=== PATIENT | female | born 1930 | race Caucasian/White ===

== ENCOUNTER 2016-05-11 14:11 | Outpatient (RCR) | payer MEDICARE ==
[~2016-05-11 14:11] MED LIST: AC325T PO; ALBU17AE3 IH; AMLO5TAB2 PO; ASP325TEC PO; ASP81CT PO; ASP81TEC PO; CALC-793 PO; CETI10TA17 PO; CLOP75TA PO; CLOP75TA28 PO; CLPD75T PO; CYAN1TAB26 PO; FAMO20TA13 PO; FERR325C PO; FISH OIL 1,2001 EAC1 PO; FLUT16SP22 NS; IPRA3AMP11 NEB; IPRA4AER INH; LEVO50TA6 PO; LEVO750T39 PO; LISI2.5T56 PO; LNZ600T PO; MECL-106 PO; METO25TA2 PO; METO50TA2 PO; METR500T PO; NIAC1CAP PO; PANT40TA PO; PRD10T PO; PRED10DR OP; PREDISONE; RT-COMBINH IH; SIMV40TA4 PO; TIOT18CA IH; [UNRECOGNIZED DRUG - CODE] OP
--- OUTSIDE RECORDS SUMMARY | 2016-05-11 14:15 | XMS REPORT | Continuity of Care Document ---
Author Author [facility] Organization [facility] Address Unknown Phone Unavailable Care Team Providers Care Road Commissioner Name Role Phone LORNA WICK MD PCP Insurance Providers Payer Name Policy Number Subscriber Name Relationship [employer] [id number] Saira Gilmore 19 Self / Same As Patient Advance Directives Directive Response Recorded Date/Time Advance Directives No 01/10/16 11:45am Health Care Power of Dish Carrier No 01/10/16 11:45am Organ Donor No 01/10/16 11:45am Resuscitation Status Full Code 01/10/16 11:45am Chief Complaint and Reason for Visit Chief Complaint PERSISTANT VOMITING Reason for Visit Volume depletion Problems Active Problems Medical Problem Onset Date Status Bronchitis Unknown Acute Chest pain Unknown Acute Generalized weakness Unknown Acute Intractable nausea and vomiting Unknown Acute Persistent vomiting Unknown Acute Volume depletion Unknown Acute Medications Current Home Medications Medication Dose Units Route Directions Days/Qty Instructions Start Date [place]-3 Fatty Acids/Fish Oil 1 Each 1,200 Mg Oral Twice A Day Acetaminophen 325 Mg 650 Mg Oral Every 4HRS as needed for Pain TAKES 2 (325MG) TABLETS 03/10/11 Albuterol/Ipratropium 3 Ml 3 Ml Nebullizer Three Times A Day as needed for Shortness Of Breath 08/08/11 Niacin/Inositol Niacinate 1 Each 1,000 Mg Oral Bedtime 11/07/11 Aspirin 81 Mg 81 Mg Oral Bedtime 11/07/11 Levothyroxine Sodium 50 Mcg 50 Mcg Oral Daily 10/13/15 Clopidogrel Bisulfate 75 Mg 75 Mg Oral Daily 10/13/15 Simvastatin 40 Mg 40 Mg Oral Bedtime 10/13/15 Metoprolol Tartrate 50 Mg 25 Mg Oral Twice A Day TAKES 1/2 (50MG) TABLET 10/13/15 Meclizine Hcl 25 Mg 25 Mg Oral Three Times A Day as needed for Vertigo 10/13/15 Albuterol/Ipratropium 4 Gm 1 Puff Inhalation Four Times Daily as needed for Shortness Of Breath 10/13/15 Levofloxacin 750 Mg 750 Mg Oral Q48h@11 4 Start on Jan 19 01/18/16 Prednisone 10 Mg 60 Mg Oral Daily 21 Take 6 tabs (60mg) daily, decrease by 1 tab (10mg) daily. 01/18/16 Past Home Medications Medication Directions Ordered Status Metoprolol Tartrate (Lopressor) 25 Mg Tablet, 25 Mg Oral Twice A Day Discontinued Lisinopril (Zestril) 2.5 Mg Tablet, 2.5 Mg Oral Daily 10/20/09 Discontinued Simvastatin 40 Mg Tablet, 40 Mg Oral Daily 10/20/09 Discontinued Aspirin 81 Mg Chew, 81 Mg Oral Twice A Day 10/20/09 Discontinued Calcium/Vitamin D 1 Tab Tablet, 1 Tab Oral Daily 10/20/09 Discontinued Linezolid 600 Mg Tab, 600 Mg Oral Twice A Day 11/26/09 Discontinued Albuterol 17 Gm Inh, 1 [place] Inhalation Twice A Day 08/11/10 Discontinued Ferrous Sulfate 325 ( 65 )Mg Capsule.sa, 325 Mg Oral Twice A Day 03/08/11 Discontinued [Predisone] , 03/08/11 Discontinued Cyanocobalamin/Folic Acid 1 Each Tablet, 1 Each Oral Daily 03/08/11 Discontinued Bromfenac Sodium 1.7 Ml Drops, 1 Drop Ophthalmic Daily 08/03/11 Discontinued Prednisolone Acetate 10 Ml Drops.susp, 3 Drops Ophthalmic As Directed Discontinued Tiotropium [place] 1 Inh Aerp, 0 Inhalation Daily 08/08/11 Discontinued Ipratropium/Albuterol Sulfate 14.7 Gm Aer.w.adap, 1 Puff Inhalation Every 2 Hours as needed 08/08/11 Discontinued Clopidogrel Bisulfate 75 Mg Tablet, 75 Mg Oral Daily 11/07/11 Discontinued Aspirin 325 Mg Tabec, 162.5 Mg Oral Twice A Day 11/07/11 Discontinued Clopidogrel Bisulfate 75 Mg Tablet, 75 Mg Oral Daily 03/12/12 Discontinued Pantoprazole Sodium 40 Mg Tablet.dr, 40 Mg Oral Daily 05/29/12 Discontinued Amlodipine Besylate (Norvasc 5 Mg) 5 Mg Tablet, 5 Mg Oral Daily 06/05/12 Discontinued Prednisone 10 Mg Tab, 1 Tab Oral Three Times A Day 06/05/12 Discontinued Famotidine 20 Mg Tablet, 20 Mg Oral Twice A Day 12/24/13 Discontinued Metronidazole 500 Mg Tab, 1 Each Oral Three Times A Day 12/24/13 Discontinued Cetirizine Hcl 10 Mg Tablet, 10 Mg Oral Bedtime 10/13/15 Discontinued Fluticasone Propionate 16 Gm [place].susp, 1 [place] Nasal Daily 01/10/16 Discontinued Social History Social History Problem Response Recorded Date/Time Alcohol Use Denies Use 10/13/2015 3:07pm Recreational Drug Use No 10/13/2015 3:07pm Recent Foreign Travel No 12/20/2013 10:23pm Recent Infectious Disease Exposure No 12/20/2013 10:23pm Hospitalization with Isolation Unknown 12/24/2013 3:17pm Sexually Transmitted Disease No 01/10/2016 11:45am HIV/AIDS No 01/10/2016 11:45am Smoking Status Former Smoker 01/10/2016 4:23pm Do you dip or chew tobacco? No 10/13/2015 11:55am Recent Hopitalizations No 01/10/2016 11:45am Sexually Transmitted Disease No 01/10/2016 11:45am Hospitalization with Isolation Unknown 12/24/2013 3:17pm Query Response Start Date Stop Date Smoking Status Former Smoker 12/20/1993 Hospital Discharge Instructions Patient Instructions Physician Instructions Resume Normal Activity: Yes Discharge Diet: Eat Small Frequent Meals Drink 6-8 Glasses of Fluid/Day: Yes Driving Instructions: No Driving for 1 Week Avoid ALL Tobacco Products: Smoking of Any Kind Plan of Care Discharge Date 01/18/16 1:41pm Disposition 06 HOME HEALTH SERVICE Instructions/Education Provided Acute Abdominal Pain (ED) Forms Provided Follow-Up Fax Prescriptions See Medication Section Referrals TEQUILA GARCIA DO (Unspecified) - 02/01/16 Address: [address] [place] [address]&[place], [place] [id number] Reason(s) for Referral: FOLLOW UP APPOINTMENT WITH DR. GARCIA IS AT 9:45AM. (Unspecified) - Reason(s) for Referral: NURSING SERVICES Care Plan and Goals See Discharge Instructions Section Functional Status Query Response Date Recorded Patient Orientation Person Place Time Situation Eyes Open January 18, 2016 2:46pm Comprehension Ability Understands Concepts January 17, 2016 8:20pm Allergies, Adverse Reactions, Alerts Allergen Type Severity Reaction Status Last Updated Tetanus Vaccines & Toxoid ([id number]) Allergy Unknown Active 08/03/11 Erythromycin base Allergy Unknown Active 08/03/11 flona Adverse Reaction Intermediate Active 01/15/16 Immunizations No immunization records. Vital Signs Acute Vital Signs Vital Response Date/Time Temperature (Fahrenheit) 97.4 degrees F (97.6 - 99.5) 01/18/2016 6:00am Temperature (Calculated Celsius) 36.23276 degrees C (36.4 - 37.5) 01/18/2016 6:00am Temperature Source Tympanic 01/18/2016 6:00am Pulse Rate (adult) 84 bpm (60 - 90) 01/18/2016 6:00am Respiratory Rate 20 bpm (12 - 24) 01/18/2016 6:00am O2 Sat by Pulse Oximetry 95 % (88 - 100) 01/18/2016 10:08am Blood Pressure 167/61 mm Hg 01/18/2016 6:00am Blood Pressure Mean 96 mm Hg 01/18/2016 6:00am Pain Numeric Pain Scale 0-No Pain 01/18/2016 1:41pm Height (Feet) 5 feet 01/10/2016 11:45am Height (Inches) 0.00 inches 01/10/2016 11:45am Height (Calculated Centimeters) 152.787263 cm 01/10/2016 11:45am Weight (Pounds) 115 pounds 01/10/2016 11:45am Weight (Ounces) 4.0 oz 01/10/2016 11:45am Weight (Calculated Grams) 04689.52 gm 01/10/2016 11:45am Weight (Calculated Kilograms) 52.669214 kilograms 01/10/2016 11:45am Calculated BMI 22.5 01/10/2016 11:45am Capillary Refill Capillary Refill Less Than 3 Seconds 01/12/2016 9:00pm Results Laboratory Results Test Name Result Units Flags Reference Collection Date/Time Result Date/ Time Comments White Blood Count 7.3 10^3/uL 4.3-11.0 01/16/2016 6:01/16/2016 6: 28am Red Blood Count 3.88 10^6/uL L 4.35-5.85 01/16/2016 6:01/16/2016 6: 28am Hemoglobin 10.3 G/DL L 11.5-16.0 01/16/2016 6:01/16/2016 6:28am Hematocrit 31 % L 35-52 01/16/2016 6:01/16/2016 6:28am Mean Corpuscular Volume 81 FL 80-99 01/16/2016 6:01/16/2016 6: 28am Mean Corpuscular Hemoglobin 27 PG 25-34 01/16/2016 6:01/16/2016 6: 28am Mean Corpuscular Hemoglobin Concent 33 G/DL 32-36 01/16/2016 6: 6:28am Red Cell Distribution Width 14.9 % H 10.0-14.5 01/16/2016 6:2015 6:28am Platelet Count 361 10^3/uL 130-400 01/16/2016 6:01/16/2016 6:28am Mean Platelet Volume 8.9 FL 7.4-10.4 01/16/2016 6:01/16/2016 6: 28am Neutrophils (%) (Auto) 81 % H 42-75 01/16/2016 6:01/16/2016 6:28am Lymphocytes (%) (Auto) 8 % L 12-44 01/16/2016 6:01/16/2016 6:28am Monocytes (%) (Auto) 11 % 0-12 01/16/2016 6:01/16/2016 6:28am Eosinophils (%) (Auto) 0 % 0-10 01/16/2016 6:01/16/2016 6:28am Basophils (%) (Auto) 0 % 0-10 01/16/2016 6:01/16/2016 6:28am Neutrophils # (Auto) 5.9 X 10^3 1.8-7.8 01/16/2016 6:16am 01/16/2016 6: 28am Lymphocytes # (Auto) 0.6 X 10^3 L 1.0-4.0 01/16/2016 6:16am 01/16/2016 6: 28am Monocytes # (Auto) 0.8 X 10^3 0.0-1.0 01/16/2016 6:16am 01/16/2016 6: 28am Eosinophils # (Auto) 0.0 10^3/uL 0.0-0.3 01/16/2016 6:16am 01/16/2016 6 :28am Basophils # (Auto) 0.0 10^3/uL 0.0-0.1 01/16/2016 6:16am 01/16/2016 6: 28am Neutrophils % (Manual) 92 % 01/12/2016 9:59am 01/12/2016 11:09am Lymphocytes % (Manual) 7 % 01/12/2016 9:59am 01/12/2016 11:09am Monocytes % (Manual) 1 % 01/12/2016 9:59am 01/12/2016 11:09am Crenated Cell MODERATE 01/12/2016 9:59am 01/12/2016 11:09am Urine Color STRAW 01/12/2016 10:51am 01/12/2016 11:35am Urine Clarity CLEAR 01/12/2016 10:51am 01/12/2016 11:35am Urine pH 6.5 5-9 01/12/2016 10:51am 01/12/2016 11:35am Urine Specific [place] 1.005 * 1.016-1.022 01/12/2016 10:51am 2015 11:35am Urine Protein NEGATIVE NEGATIVE 01/12/2016 10:51am 01/12/2016 11: 35am Urine Glucose (UA) NEGATIVE NEGATIVE 01/12/2016 10:51am 01/12/2016 11 :35am Urine RBC (Auto) NEGATIVE NEGATIVE 01/12/2016 10:51am 01/12/2016 11: 35am Urine Ketones NEGATIVE NEGATIVE 01/12/2016 10:51am 01/12/2016 11: 35am Urine Nitrite NEGATIVE NEGATIVE 01/12/2016 10:51am 01/12/2016 11: 35am Urine Bilirubin NEGATIVE NEGATIVE 01/12/2016 10:51am 01/12/2016 11: 35am Urine Urobilinogen NORMAL MG/DL NORMAL 01/12/2016 10:51am 01/12/2016 11 :35am Urine Leukocyte Esterase NEGATIVE NEGATIVE 01/12/2016 10:51am 2015 11:35am Urine RBC NONE /HPF 01/12/2016 10:51am 01/12/2016 11:35am Urine WBC RARE /HPF 01/12/2016 10:51am 01/12/2016 11:35am Urine Bacteria NEGATIVE /HPF 01/12/2016 10:51am 01/12/2016 11:35am Urine Crystals NONE /LPF 01/12/2016 10:51am 01/12/2016 11:35am Urine Casts NONE /LPF 01/12/2016 10:51am 01/12/2016 11:35am Urine Mucus NEGATIVE /LPF 01/12/2016 10:51am 01/12/2016 11:35am Urine Culture Indicated NO 01/12/2016 10:51am 01/12/2016 11:35am Sodium Level 134 MMOL/L L 135-145 01/16/2016 6:16am 01/16/2016 6:40am Potassium Level 4.4 MMOL/L 3.6-5.0 01/16/2016 6:16am 01/16/2016 6:40am Chloride Level 100 MMOL/L 98-107 01/16/2016 6:16am 01/16/2016 6:40am Carbon Dioxide Level 24 MMOL/L -01/16/2016 6:16am 01/16/2016 6: 40am Anion Gap 10 MMOL/L 5-14 01/16/2016 6:16am 01/16/2016 6:40am Blood Urea Nitrogen 15 MG/DL 7-18 01/16/2016 6:16am 01/16/2016 6:40am Creatinine 0.71 MG/DL 0.60-1.30 01/16/2016 6:16am 01/16/2016 6:40am BUN/Creatinine Ratio 01/16/2016 6:16am 01/16/2016 6:40am Estimat Glomerular Filtration Rate > 60 01/16/2016 6:16am 2015 6:40am GFR INTERPRETIVE DATA UNITS FOR ESTIMATED GFR (eGFR): mL/min/1.73 M2 REFERENCE RANGE FOR ESTIMATED GFR (eGFR) eGFR NORMAL eGFR >60 MODERATELY DECREASED eGFR 30-59 SEVERLY DECREASED eGFR 15-29 KIDNEY FAILURE <15 (OR DIALYSIS) Glucose Level 129 MG/DL H 70-105 01/16/2016 6:16am 01/16/2016 6:40am Calcium Level 8.8 MG/DL 8.5-10.1 01/16/2016 6:16am 01/16/2016 6:40am Phosphorus Level 3.0 MG/DL 2.3-4.7 01/12/2016 9:59am 01/12/2016 11: 05am Magnesium Level 1.7 MG/DL L 1.8-2.4 01/12/2016 9:59am 01/12/2016 11:05am Total Bilirubin 0.3 MG/DL 0.1-1.0 01/14/2016 4:00am 01/14/2016 5:11am Alkaline Phosphatase 55 U/L 40-136 01/14/2016 4:00am 01/14/2016 5:11am Aspartate Amino Transf (AST/SGOT) 14 U/L 5-34 01/14/2016 4:00am 2015 5:11am Alanine Aminotransferase (ALT/SGPT) 13 U/L 0-55 01/14/2016 4:00am 01/13 5:11am B-Type Natriuretic Peptide 715.6 PG/ML H <100.0 01/12/2016 9:59am 2015 11:08am Total Protein 6.5 G/DL 6.4-8.2 01/14/2016 4:00am 01/14/2016 5:11am Albumin 3.4 G/DL 3.2-4.5 01/14/2016 4:00am 01/14/2016 5:11am Lipase 10 U/L 8-78 01/10/2016 8:30am 01/10/2016 9:19am Lactic Acid Level 0.9 MMOL/L 0.5-2.0 01/12/2016 9:59am 01/12/2016 11: 05am Arterial Blood pH 7.39 7.37-7.43 01/12/2016 9:50am 01/12/2016 10: 01am Arterial Blood Partial Pressure CO2 30 MMHG L 35-45 01/12/2016 9:50am 10:01am Arterial Blood Partial Pressure O2 82 MMHG 79-93 01/12/2016 9:50am 10:01am Arterial Blood HCO3 18 MMOL/L L 23-27 01/12/2016 9:50am 01/12/2016 10: 01am Arterial Blood Total CO2 19.2 MMOL/L L 21.0-31.0 01/12/2016 9:50am 2015 10:01am Arterial Blood Base Excess -5.9 MMOL/L L -2.5-2.5 01/12/2016 9:50am 01/11 10:01am Arterial Blood Oxygen Saturation 97 % 94-100 01/12/2016 9:50am 2015 10:01am Blood Gas Puncture Site RT BRACH 01/12/2016 9:50am 01/12/2016 10: 01am [place] Test YES-POS 01/12/2016 9:50am 01/12/2016 10:01am Blood Gas Inspired Oxygen 3L 01/12/2016 9:50am 01/12/2016 10:01am Blood Gas Ventilator Setting NO 01/12/2016 9:50am 01/12/2016 10: 01am Blood Gas Patient Temperature 97.5 01/12/2016 9:50am 01/12/2016 10: 01am Microbiology Results Procedure Source Result Collection Date/Time Result Date/Time Blood Culture Peripheral, Lt Ac No growth 01/12/2016 9:59am 01/13/2016 3: 52pm Blood Culture Peripheral, Lt Ac No growth 01/12/2016 10:40am 01/13/2016 3: 52pm Blood Culture Port, Picc No growth 01/12/2016 10:46am 01/13/2016 3:52pm Sputum Culture Sputum, Expectorated PSEUDOMONAS AERUGINOSA 01/12/2016 9: 50am 01/14/2016 7:24am Procedures No known history of procedures. Encounters Encounter Location Arrival/Admit Date Discharge/Depart Date Attending Provider Discharged Inpatient [facility] 01/12/16 1:16pm 1:41pm LORNA WICK MD Recent Diagnosis Volume depletion
[2016-05-11 14:21] LABS: BASOPHILS # (AUTO) 0.1 10^3/uL (0.0-0.1); BASOPHILS % (AUTO) 1 % (0-10); EOSINOPHILS # (AUTO) 0.3 10^3/uL (0.0-0.3); EOSINOPHILS % (AUTO) 3 % (0-10); LYMPHOCYTES # (AUTO) 1.5 X 10^3 (1.0-4.0); LYMPHOCYTES % (AUTO) 17 % (12-44); MEAN CORPUSCULAR HEMOGLOBIN 25 PG (25-34); MEAN CORPUSCULAR HGB CONC 32 G/DL (32-36); MEAN CORPUSCULAR VOLUME 79 FL (80-99); MEAN PLATELET VOLUME 8.9 FL (7.4-10.4); MONOCYTES % (AUTO) 12 % (0-12); NEUTROPHILS # (AUTO) 5.9 X 10^3 (1.8-7.8); NEUTROPHILS % (AUTO) 68 % (42-75); PLATELET COUNT 405 10^3/uL (130-400); RED BLOOD COUNT 3.89 10^6/uL (4.35-5.85); RED CELL DISTRIBUTION WIDTH 15.7 % (10.0-14.5); WHITE BLOOD COUNT 8.7 10^3/uL (4.3-11.0)
[2016-05-11 15:30] LABS: ALANINE AMINOTRANSFERASE < 6 U/L (0-55); ANION GAP 8 MMOL/L (5-14); ASPARTATE AMINO TRANSFERASE 10 U/L (5-34); BILIRUBIN,TOTAL 0.2 MG/DL (0.1-1.0); BLOOD UREA NITROGEN 18 MG/DL (7-18); BUN/CREATININE RATIO 22; CALCIUM 8.9 MG/DL (8.5-10.1); CARBON DIOXIDE 22 MMOL/L (21-32); CHLORIDE 106 MMOL/L (98-107); CREATININE SERUM 0.83 MG/DL (0.60-1.30); GFR ESTIMATED > 60; GLUCOSE 75 MG/DL (70-105); MAGNESIUM 2.2 MG/DL (1.8-2.4); POTASSIUM 4.1 MMOL/L (3.6-5.0); SODIUM 136 MMOL/L (135-145); TOTAL PROTEIN 7.4 G/DL (6.4-8.2)
[2016-05-11 15:56] LABS: THYROID STIMULATING HORMONE 3.58 UIU/ML (0.35-4.94)
== END 2016-08-09 | disposition home or self-care (01) ==
LOC: ONC 14:11
PROVIDERS: ATTEND Internal Medicine Hematology & Oncology
DX: Z08 Encounter for follow-up examination after completed treatment for malignant neoplasm (principal); Z85.118 Personal history of other malignant neoplasm of bronchus and lung; D64.9 Anemia, unspecified; I25.10 Atherosclerotic heart disease of native coronary artery without angina pectoris; J44.9 Chronic obstructive pulmonary disease, unspecified; E78.5 Hyperlipidemia, unspecified; Z79.899 Other long term (current) drug therapy
CPT/HCPCS: 36415; 80053; 83735; 84439; 84443; 85025; 99213

== ENCOUNTER 2016-09-24 20:47 | Inpatient (IN) | payer MEDICARE ==
[~2016-09-24] VITALS: Ht 152.4 cm; Wt 52.7 kg
[2016-09-24] MEDS ORDERED: RT-ALBUTEROL/IPRATROPIUM 3 ML (DUONEB) VIAL INH ONE ×2 (21:15→21:30)
[2016-09-24 21:18] LABS: BASOPHILS # (AUTO) 0.1 10^3/uL (0.0-0.1); BASOPHILS % (AUTO) 1 % (0-10); EOSINOPHILS # (AUTO) 0.3 10^3/uL (0.0-0.3); EOSINOPHILS % (AUTO) 3 % (0-10); LYMPHOCYTES % (AUTO) 23 % (12-44); MEAN CORPUSCULAR HEMOGLOBIN 23 PG (25-34); MEAN CORPUSCULAR HGB CONC 31 G/DL (32-36); MEAN CORPUSCULAR VOLUME 75 FL (80-99); MEAN PLATELET VOLUME 9.1 FL (7.4-10.4); MONOCYTES # (AUTO) 1.1 X 10^3 (0.0-1.0); MONOCYTES % (AUTO) 13 % (0-12); NEUTROPHILS % (AUTO) 59 % (42-75); PLATELET COUNT 412 10^3/uL (130-400); RED BLOOD COUNT 4.23 10^6/uL (4.35-5.85); RED CELL DISTRIBUTION WIDTH 17.7 % (10.0-14.5); WHITE BLOOD COUNT 8.5 10^3/uL (4.3-11.0)
[2016-09-24 21:27] LABS: PROTHROMBIN TIME PATIENT 12.7 SEC (12.2-14.7)
[2016-09-24] MEDS ORDERED: methylPREDNISolone 125 MG (Solu-MEDROL) VIAL IVP ONE (21:30)
[2016-09-24] MEDS ORDERED: DEXAMETHASONE 4 MG/ML SDV (DECADRON) IH ONE (21:30)
[2016-09-24 21:38] LABS: ANION GAP 10 MMOL/L (5-14); BLOOD UREA NITROGEN 19 MG/DL (7-18); BUN/CREATININE RATIO 15; CARBON DIOXIDE 22 MMOL/L (21-32); CHLORIDE 105 MMOL/L (98-107); CREATININE SERUM 1.25 MG/DL (0.60-1.30); GFR ESTIMATED 41; POTASSIUM 4.6 MMOL/L (3.6-5.0); SODIUM 137 MMOL/L (135-145)
[2016-09-24 21:39] LABS: ALANINE AMINOTRANSFERASE 8 U/L (0-55); ALBUMIN 4.1 G/DL (3.2-4.5); ASPARTATE AMINO TRANSFERASE 15 U/L (5-34); BILIRUBIN,TOTAL 0.3 MG/DL (0.1-1.0); CALCIUM 9.1 MG/DL (8.5-10.1); CREATINE KINASE 40 U/L (29-168); GLUCOSE 86 MG/DL (70-105); MAGNESIUM 2.4 MG/DL (1.8-2.4); TOTAL PROTEIN 7.6 G/DL (6.4-8.2)
[2016-09-24 21:45] LABS: TROPONIN I < 0.30 NG/ML (<0.30)
--- NOTE | 2016-09-24 21:47 | Diagnostic Imaging Report ---
INDICATION: Hemoptysis, progressively short of breath throughout the day. Chest heaviness. Symptoms intermittent x3 days. TECHNIQUE: Single view chest 9:12 PM. CORRELATION STUDY: Chest 01/17/2016. FINDINGS: Patient is poststernotomy. Heart size within normal limits. Vasculature is within normal limits as well. There is abnormal distortion about the mediastinum particularly in the right suprahilar region. There also appears to be some involvement over the left suprahilar region. This has adversely changed since prior study. Some retraction with elevation of the right diaphragm. Remaining lung leone clear. Multiple vascular stents noted over the right lung apex and soft tissues of the neck bilaterally. IMPRESSION: 1. Abnormal masslike parenchymal density about the mediastinum in the right suprahilar region and to a lesser degree left suprahilar region. While this may be owing to areas of progressive fibrosis and/or infiltrate, possibility of mass lesion is not excluded. Continued followup imaging and/or CT imaging would be recommended. Dictated by: Dictated on workstation # [id number]
--- NOTE | 2016-09-24 22:36 | ED Respiratory ---
General Chief Complaint: Chest Pain Stated Complaint: CHEST PAIN, COUGHING UP BLOOD Nursing Triage Note: Patient reports coughing up blood this morning and getting progessively short of breath throughout the day. patient reports chest heaviness worsened after dinner tonight. daughter reports symptoms have been intermittent x 3 days Source: patient, old records History of Present Illness Time seen by provider: 21:05 Initial Comments PT ARRIVES VIA POV WITH FAMILY PT HAS HAD COUGH, CONGESTION AND CHEST HEAVINESS FOR THE LAST 3 DAYS, WORSE TONIGHT HAS COPD BUT HAS HAD INCREASING SHORTNESS OF BREATH, ESPECIALLY ON MINIMAL EXERTION HAS HAD THICK COLORED SPUTUM, BUT HAS BEEN BLOODY TODAY NO SWELLING IN LEGS/FEET OR PAIN IN CALVES HAS HAD CHILLS BUT NO KNOWN FEVER LAST DUO NEB TREATMENT WAS AT 11:30 THIS AM PT WITH HISTORY OF LUNG CANCER -DX >13 YEARS AGO--S/P RADIATION AND CHEMO STILL SEES DR. MONTOYA, HAS NOT HAD A PET SCAN FOR QUITE SOME TIME--LAST ONE WAS AND SHOWED NO ACTIVE AREAS PCP: DR. WICK ONCOLOGY: DR. MONTOYA PULMONOLOGY: DR. GARCIA DUST MOP MAKER: DR. LEE CV SURGEON: DR. JHA [facility] Allergies and Home Medications Allergies Coded Allergies: Tetanus Vaccines and Toxoid (Verified Allergy, Unknown, 08/03/11) erythromycin base (Verified Allergy, Unknown, 08/03/11) Uncoded Allergies: flona (Adverse Reaction, Intermediate, 01/15/16) Home Medications Acetaminophen 325 Mg Tablet, 650 MG PO Q4H PRN for PAIN, (Reported) TAKES 2 (325MG) TABLETS Albuterol/Ipratropium 3 Ml Nebu, 3 ML NEB TID PRN for SHORTNESS OF BREATH, ( Reported) Albuterol/Ipratropium 4 Gm Aero, 1 PUFF INH QID PRN for SHORTNESS OF BREATH, ( Reported) Aspirin 81 Mg Tabec, 81 MG PO HS, (Reported) Clopidogrel Bisulfate 75 Mg Tablet, 75 MG PO DAILY, (Reported) Levofloxacin 750 Mg Tablet, 750 MG PO Q48H@11, #4 Ref 0 Start on Jan 19 Prescribed by: TEQUILA GARCIA on 01/18/16 0825 Levothyroxine Sodium 50 Mcg Tablet, 50 MCG PO DAILY, (Reported) Meclizine HCl 25 Mg Tablet, 25 MG PO TID PRN for VERTIGO, (Reported) Metoprolol Tartrate 50 Mg Tablet, 25 MG PO BID, (Reported) TAKES 1/2 (50MG) TABLET Niacin/Inositol Niacinate 1 Each Capsule, 1,000 MG PO HS, (Reported) [place]-3 Fatty Acids/Fish Oil 1 Each Capsule, 1,200 MG PO BID, (Reported) Prednisone 10 Mg Tab, 60 MG PO DAILY, #21 Ref 0 Take 6 tabs (60mg) daily, decrease by 1 tab (10mg) daily. Prescribed by: TEQUILA GARCIA on 01/18/16 0825 Simvastatin 40 Mg Tablet, 40 MG PO HS, (Reported) Constitutional: see HPI, chills, No fever EENTM: no symptoms reported Respiratory: see HPI, cough, dyspnea on exertion, hemoptysis, phlegm, short of breath, wheezing Cardiovascular: see HPI, chest pain, No edema, No palpitations, No syncope, No vascular heart diseas Gastrointestinal: no symptoms reported Musculoskeletal: no symptoms reported Skin: no symptoms reported Psychiatric/Neurological: No Symptoms Reported Hematologic/Lymphatic: No Symptoms Reported Immunological/Allergic: no symptoms reported Past Gepvvmf-Ohckuq-Jzpaen Hx Patient Social History Alcohol Use: Denies Use Recreational Drug Use: No Smoking Status: Former Smoker (VERY HEAVY SMOKER IN PAST ) Former Smoker/When Quit: Dec 20, 1993 Recent Foreign Travel: No Contact w/Someone Who Travel: No Recent Infectious Disease Expo: No Recent Hopitalizations: No Immunizations Up To Date Tetanus Booster (TDap): Unknown PED Vaccines UTD: No Date of Pneumonia Vaccine: Apr 27, 2012 Seasonal Allergies Seasonal Allergies: No Surgeries HX Surgeries: Yes (COLON--RIGHT COLECTOMY; CARDIAC CATHS/ANGIOGRAMS AND MULTIPLE STENTS--CARIDAC, CAROTIDS, LEGS; EGD/COLONOSCOPY; ) Surgeries: Abdominal, Bowel Surgery, Cardiac, CABG, Coronary Stent, Hysterectomy, Tonsillectomy, Vascular Surgery Respiratory Hx Respiratory Disorders: Yes (COPD; 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) Respiratory Disorders: Pneumonia, Chronic Bronchitis, COPD Cardiovascular Hx Cardiac Disorders: Yes (STENTS--CARDIAC, CAROTIDS, LEGS) Cardiac Disorders: Coronary Artery Disease, Heart Attack, High Cholesterol, Hypertension, Peripheral Vascular Neurological Hx Neurological Disorders: Yes Neurological Disorders: Headaches /Migraines, TIA Reproductive System Hx Reproductive Disorders: Yes Sexually Transmitted Disease: No HIV/AIDS: No Female Reproductive Disorders: Endometriosis 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 Genitourinary Hx Genitourinary Disorders: No Gastrointestinal Hx Gastrointestinal Disorders: Yes Gastrointestinal Disorders: Gastroesophageal Reflux, Obstructive Bowel, Diverticulosis, Hiatal Hernia, Gall Bladder Disease Musculoskeletal Hx Musculoskeletal Disorders: Yes (ARTHRITIS; COMPRESSION FRACTURES THORACIC SPINE) Musculoskeletal Disorders: Osteoporosis, Arthritis, Fibromyalgia, Fractures Endocrine Hx Endocrine Disorders: Yes Endocrine Disorders: Hypothyroidsim HEENT HX ENT Disorders: Yes HEENT Disorders: Cataract Loss of Vision: Denies Hearing Impairment: Hard of Hearing Cancer Hx Cancer: Yes (LUNG CANCER- > 13YRS AGO--S/P CHEMO AND RADIATION ) Cancer: Lung Psychosocial Hx Psychiatric Problems: No Integumentary HX Skin/Integumentary Disorder: Yes (SHINGLES in past, treated with OTC antifungal ordered by dr Montoya?) Skin/Integumentary Disorders: Eczema Blood Transfusions Hx Blood Disorders: No Family Medical History Family Medial History: Family history: Asthma 19 FATHER, Onset:Unknown Family history: Cardiovascular disease 19 MOTHER, Onset:Unknown No Family History of: Abdominal aortic aneurysm [place]'s disease Alcoholism Aphasia Cancer Cancer of colon Cataract Chest pain Congenital heart disease Congestive heart failure Cystic fibrosis Dementia Dysphagia Family history: Allergy Family history: Alzheimer's disease Family history: Arthritis Family history: Breast disease Family history: Coronary thrombosis Family history: Diabetes mellitus Family history: Gastrointestinal disease Family history: Glaucoma Family history: Hypertension Family history: Osteoporosis Family history: Thyroid disorder Headache Hearing loss Heart disease Hereditary disease History of - anemia History of - disorder History of - respiratory disease History of drug abuse Human immunodeficiency virus (HIV) seropositivity Hypercholesterolemia Infertile Kidney disease Malignant neoplasm of lung Myocardial infarction Parkinson's disease Prostate cancer Psychotic disorder Seizure disorder Stroke Tuberculosis Visual impairment Physical Exam Vital Signs Vital Sign - Last 12Hours 09/24/16 21:02 Temp 98.2 Pulse 79 Resp 22 B/P (MAP) 188/65 Pulse Ox 97 O2 Delivery Room Air Capillary Refill : Less Than 3 Seconds General Appearance: WD/WN, no apparent distress HEENT: PERRL/EOMI, normal ENT inspection Neck: normal inspection Respiratory: no respiratory distress, no accessory muscle use, wheezing ( DIFFUSE EXPIRATORY WHEEZING BILATERALLLY) Cardiovascular: regular rate, rhythm, no murmur Gastrointestinal: normal bowel sounds, non tender, soft Extremities: normal inspection, no pedal edema, no calf tenderness, normal capillary refill Neurologic/Psychiatric: presbyterian clergy II-XII nml as tested, no motor/sensory deficits, alert, normal mood/affect, oriented x 3 Skin: normal color, warm/dry Focused Exam Lactic Acid Level Laboratory Tests Test 09/24/16 20:45 Lactic Acid Level 1.92 MMOL/L (0.50-2.00) Progress/Results/Core Measures Results/Orders Lab Results Laboratory Tests Test 09/24/16 20:45 09/24/16 21:10 Range/Units Lactic Acid Level 1.92 0.50-2.00 MMOL/L White Blood Count 8.5 4.3-11.0 10^3/uL Red Blood Count 4.23 L 4.35-5.85 10^6/uL Hemoglobin 9.8 L 11.5-16.0 G/DL Hematocrit 32 L 35-52 % Mean Corpuscular Volume 75 L 80-99 FL Mean Corpuscular Hemoglobin 23 L 25-34 PG Mean Corpuscular Hemoglobin Concent 31 L 32-36 G/DL Red Cell Distribution Width 17.7 H 10.0-14.5 % Platelet Count 412 H 130-400 10^3/uL Mean Platelet Volume 9.1 7.4-10.4 FL Neutrophils (%) (Auto) 59 42-75 % Lymphocytes (%) (Auto) 23 12-44 % Monocytes (%) (Auto) 13 H 0-12 % Eosinophils (%) (Auto) 3 0-10 % Basophils (%) (Auto) 1 0-10 % Neutrophils # (Auto) 5.0 1.8-7.8 X 10^3 Lymphocytes # (Auto) 2.0 1.0-4.0 X 10^3 Monocytes # (Auto) 1.1 H 0.0-1.0 X 10^3 Eosinophils # (Auto) 0.3 0.0-0.3 10^3/uL Basophils # (Auto) 0.1 0.0-0.1 10^3/uL Prothrombin Time 12.7 12.2-14.7 SEC INR Comment 1.0 0.8-1.4 Activated Partial Thromboplast Time 32 24-35 SEC Sodium Level 137 135-145 MMOL/L Potassium Level 4.6 3.6-5.0 MMOL/L Chloride Level 105 98-107 MMOL/L Carbon Dioxide Level 22 21-32 MMOL/L Anion Gap 10 5-14 MMOL/L Blood Urea Nitrogen 19 H 7-18 MG/DL Creatinine 1.25 0.60-1.30 MG/DL Estimat Glomerular Filtration Rate 41 BUN/Creatinine Ratio 15 Glucose Level 86 70-105 MG/DL Calcium Level 9.1 8.5-10.1 MG/DL Magnesium Level 2.4 1.8-2.4 MG/DL Total Bilirubin 0.3 0.1-1.0 MG/DL Aspartate Amino Transf (AST/SGOT) 15 5-34 U/L Alanine Aminotransferase (ALT/SGPT) 8 0-55 U/L Alkaline Phosphatase 91 40-136 U/L Total Creatine Kinase 40 29-168 U/L Creatine Kinase MB 1.8 <6.6 NG/ML Troponin I < 0.30 <0.30 NG/ML B-Type Natriuretic Peptide 89.2 <100.0 PG/ML Total Protein 7.6 6.4-8.2 G/DL Albumin 4.1 3.2-4.5 G/DL Micro Results Microbiology 09/24/16 Influenza Types A,B Antigen (KOREY) - Final, Complete My Orders Orders - OSCAR ARCEO DO BNP (09/24/16 21:06) Cbc With Automated Diff (09/24/16 21:06) Comprehensive Metabolic Panel (09/24/16 21:06) Creatine Kinase (09/24/16 21:06) Creatine Kinase Mb (09/24/16 21:06) Magnesium (09/24/16 21:06) Protime With Inr (09/24/16 21:06) Partial Thromboplastin Time (09/24/16 21:06) Troponin I (09/24/16 21:06) Influenza A And B Antigens (09/24/16 21:06) Chest 1 View, Ap/Pa Only (09/24/16 21:06) Albuterol/Ipra Inhalation Soln (Duoneb I (09/24/16 21:15) Rt Request For Service (09/24/16 21:06) Svn Sm Volume Nebulizer Rt-Rfs (09/24/16 21:06) Lactic Acid Analyzer (09/24/16 21:19) Blood Culture (09/24/16 21:19) Methylprednisolone Sod Succ (Solu-Medrol (09/24/16 21:30) Albuterol/Ipra Inhalation Soln (Duoneb I (09/24/16 21:30) Dexamethasone Injection (Decadron Inject (09/24/16 21:30) Svn Sm Volume Nebulizer Rt-Rfs (09/24/16 21:28) Ct Chest Wo (09/24/16 21:51) Sputum Culture (09/24/16 22:19) Medications Given in ED Current Medications Medications Dose Ordered Sig/Harinder Route Start Time Stop Time Status Last Admin Dose Admin Albuterol/ Ipratropium 3 ml ONCE ONCE INH 09/24/16 21:15 09/24/16 21:16 DC 09/24/16 21:15 3 ML Albuterol/ Ipratropium 3 ml ONCE ONCE INH 09/24/16 21:30 09/24/16 21:31 DC 09/24/16 21:38 3 ML Dexamethasone Sodium Phosphate 20 mg ONCE ONCE IH 09/24/16 21:30 09/24/16 21:31 DC 09/24/16 21:39 20 MG Methylprednisolone Sodium Succinate 125 mg ONCE ONCE IVP 09/24/16 21:30 09/24/16 21:31 DC 09/24/16 21:44 125 MG Vital Signs/I&O Vital Sign - Last 12Hours 09/24/16 09/24/16 09/24/16 21:02 21:11 21:41 Temp 98.2 Pulse 79 Resp 22 B/P (MAP) 188/65 Pulse Ox 97 96 98 O2 Delivery Room Air Blood Pressure Mean: 106 Progress Note : Progress Note WHEEZING MUCH IMPROVED AFTER SECOND NEBULIZER TREATMENT AND PT STATES SHE FEELS BETTER, BUT O2 SATS 89-91% ON ROOM AIR AFTER TREATMENTS. PLACED ON O2 AT 2L/NC AND O2 SATS UP TO 99% NO DETERIORATION IN PT'S CONDITION DURING ER STAY ECG Initial ECG Impression Time: 21:03 Initial ECG Rate: 78 Initial ECG Impression: Normal, 1st Degree AV Block Initial ECG Comparisson: Unchanged Diagnostic Imaging Comments CXR--RIGHT PERIHILAR DENSITY-MASS VS INFILTRATE--PER RADIOLOGIST REPORT @ 8293 CT CHEST--NO ACUTE PROCESS, CHRONIC PERIBRONCHIAL THICKENING--POSSIBLY FROM RADIATION FIBROSIS, NO SIGNIFICANT CHANGE FROM PREVIOUS--PER [facility] VIA FAX @ [id number] Reviewed: Reviewed by Me Departure Communication Progress Notes 1475--SPOKE WITH DR. HOOD, ACCEPTS PT FOR ADMIT. Impression Impression: Primary Impression: Bronchitis Additional Impressions: COPD exacerbation Hypoxia Hx of cancer of lung Hemoptysis Anemia Disposition: 09 ADMITTED INPATIENT Condition: Improved Decision to Admit Reason: Admit from ER (General) Decision to Admit/Date: Sep 24, 2016 Time/Decision to Admit Time: 22:45 Departure-Patient Inst. Referrals: LORNA WICK MD (PCP/Family) Primary Care Physician OSCAR ARCEO DO Sep 24, 2016 22:36
[2016-09-24] MEDS ORDERED: NS (IVPB) 50 ML ONE (22:51)
[2016-09-24] MEDS ORDERED: cefTRIAXone 1 GM (ROCEPHIN) VIAL ONE (22:51)
[2016-09-24] MEDS ORDERED: cefTRIAXone INJECTION 1,000 MG in NS (IVPB) 50 ML IV ONE (23:00)
[2016-09-24] MEDS ORDERED: 1/2 NS IV SOLUTION 1,000 ML IV ONE (23:29)
[2016-09-24 23:30] VITALS: BP 132/62
[2016-09-24 23:45] VITALS: BP 87/61
[2016-09-24] MEDS ORDERED: ACETAMINOPHEN 500 MG TAB (TYLENOL) PO PRN (23:45)
[2016-09-25] VITALS (18 sets, daily range): BP systolic 81–149; BP diastolic 33–67
[2016-09-25] MEDS ORDERED: RT-ALBUTEROL/IPRATROPIUM 3 ML (DUONEB) VIAL INH PRN (00:15)
[2016-09-25] MEDS ORDERED: CATHETER FLUSH 10 ML SYR IV PRN (00:15)
[2016-09-25] MEDS: 1/2 NS IV SOLUTION 1,000 ML IV SCH ×2 (00:23→08:33)
[2016-09-25] MEDS: DOXYCYCLINE 100 MG/NS 100 ML IVPB IV SCH ×6 (00:29→22:56)
[2016-09-25] MEDS: RT-ALBUTEROL/IPRATROPIUM 3 ML (DUONEB) VIAL INH SCH ×6 (02:03→22:13)
[2016-09-25 04:05] LABS: BASOPHILS % (AUTO) 0 % (0-10); EOSINOPHILS % (AUTO) 0 % (0-10); LYMPHOCYTES # (AUTO) 0.3 X 10^3 (1.0-4.0); LYMPHOCYTES % (AUTO) 5 % (12-44); MEAN CORPUSCULAR HEMOGLOBIN 23 PG (25-34); MEAN CORPUSCULAR HGB CONC 31 G/DL (32-36); MEAN CORPUSCULAR VOLUME 75 FL (80-99); MEAN PLATELET VOLUME 9.9 FL (7.4-10.4); MONOCYTES # (AUTO) 0.1 X 10^3 (0.0-1.0); MONOCYTES % (AUTO) 1 % (0-12); NEUTROPHILS # (AUTO) 6.8 X 10^3 (1.8-7.8); NEUTROPHILS % (AUTO) 94 % (42-75); PLATELET COUNT 383 10^3/uL (130-400); RED BLOOD COUNT 3.94 10^6/uL (4.35-5.85); RED CELL DISTRIBUTION WIDTH 17.4 % (10.0-14.5); WHITE BLOOD COUNT 7.2 10^3/uL (4.3-11.0)
[2016-09-25 04:26] LABS: ALBUMIN 3.9 G/DL (3.2-4.5); BILIRUBIN,TOTAL 0.2 MG/DL (0.1-1.0); CALCIUM 8.8 MG/DL (8.5-10.1); CREATININE SERUM 1.06 MG/DL (0.60-1.30); POTASSIUM 4.2 MMOL/L (3.6-5.0)
[2016-09-25 04:59] LABS: BASOPHILS % (MANUAL) 1 %; LYMPHOCYTES % (MANUAL) 3 %; NEUTROPHILS % (MANUAL) 96 %
[2016-09-25] MEDS: methylPREDNISolone 125 MG (Solu-MEDROL) VIAL IV SCH ×3 (05:16→17:34)
[2016-09-25] MEDS: CATHETER FLUSH 10 ML SYR IV SCH ×2 (05:31→14:46)
--- NOTE | 2016-09-25 07:57 | Pulmonary Consultation ---
History of Present Illness History of Present Illness Date of Consultation 09/25/16 07:51 Date of Admission History of Present Illness 86yo with hx of COPD lung cancer dx >13 yrs ago follows with Dr. Muhammad presented to ED secondary to productive cough, congestion, and chest heaviness x last 3 days. Allergies and Home Medications Allergies Coded Allergies: Tetanus Vaccines and Toxoid (Verified Allergy, Unknown, 08/03/11) erythromycin base (Verified Allergy, Unknown, 08/03/11) Uncoded Allergies: flona (Adverse Reaction, Intermediate, 01/15/16) Home Medications Acetaminophen 325 Mg Tablet, 650 MG PO Q4H PRN for PAIN, (Reported) TAKES 2 (325MG) TABLETS Albuterol/Ipratropium 3 Ml Nebu, 3 ML NEB TID PRN for SHORTNESS OF BREATH, ( Reported) Albuterol/Ipratropium 4 Gm Aero, 1 PUFF INH QID PRN for SHORTNESS OF BREATH, ( Reported) Aspirin 81 Mg Tabec, 81 MG PO HS, (Reported) Clopidogrel Bisulfate 75 Mg Tablet, 75 MG PO DAILY, (Reported) Levofloxacin 750 Mg Tablet, 750 MG PO Q48H@11, #4 Ref 0 Start on Jan 19 Prescribed by: TEQUILA GARCIA on 01/18/16 0825 Levothyroxine Sodium 50 Mcg Tablet, 50 MCG PO DAILY, (Reported) Meclizine HCl 25 Mg Tablet, 25 MG PO TID PRN for VERTIGO, (Reported) Metoprolol Tartrate 50 Mg Tablet, 25 MG PO BID, (Reported) TAKES 1/2 (50MG) TABLET Niacin/Inositol Niacinate 1 Each Capsule, 1,000 MG PO HS, (Reported) [place]-3 Fatty Acids/Fish Oil 1 Each Capsule, 1,200 MG PO BID, (Reported) Prednisone 10 Mg Tab, 60 MG PO DAILY, #21 Ref 0 Take 6 tabs (60mg) daily, decrease by 1 tab (10mg) daily. Prescribed by: TEQUILA GARCIA on 01/18/16 0825 Simvastatin 40 Mg Tablet, 40 MG PO HS, (Reported) Past Wdbmqet-Pxjwdr-Vfrlhy Hx Patient Social History Alcohol Use: Denies Use Recreational Drug Use: No Smoking Status: Former Smoker (VERY HEAVY SMOKER IN PAST ) Type Used: Cigarettes Former Smoker/When Quit: Dec 20, 1993 Recent Foreign Travel: No Contact w/Someone Who Travel: No Recent Infectious Disease Expo: No Recent Hopitalizations: No Physical Abuse Screen: No Sexual Abuse: No Immunizations Up To Date Tetanus Booster (TDap): Unknown PED Vaccines UTD: No Date of Pneumonia Vaccine: Apr 27, 2012 Seasonal Allergies Seasonal Allergies: No Surgeries HX Surgeries: Yes (COLON--RIGHT COLECTOMY; CARDIAC CATHS/ANGIOGRAMS AND MULTIPLE STENTS--CARIDAC, CAROTIDS, LEGS; EGD/COLONOSCOPY; ) Surgeries: Abdominal, Bowel Surgery, Cardiac, CABG, Coronary Stent, Hysterectomy, Tonsillectomy, Vascular Surgery Respiratory Hx Respiratory Disorders: Yes (COPD; 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) Respiratory Disorders: Pneumonia, Chronic Bronchitis, COPD Cardiovascular Hx Cardiac Disorders: Yes (STENTS--CARDIAC, CAROTIDS, LEGS) Cardiac Disorders: Coronary Artery Disease, Heart Attack, High Cholesterol, Hypertension, Peripheral Vascular Neurological Hx Neurological Disorders: Yes Neurological Disorders: Headaches /Migraines, TIA Reproductive System Hx Reproductive Disorders: Yes Sexually Transmitted Disease: No HIV/AIDS: No Female Reproductive Disorders: Endometriosis 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 Genitourinary Hx Genitourinary Disorders: No Gastrointestinal Hx Gastrointestinal Disorders: Yes Gastrointestinal Disorders: Gastroesophageal Reflux, Obstructive Bowel, Diverticulosis, Hiatal Hernia, Gall Bladder Disease Musculoskeletal Hx Musculoskeletal Disorders: Yes (ARTHRITIS; COMPRESSION FRACTURES THORACIC SPINE) Musculoskeletal Disorders: Osteoporosis, Arthritis, Fibromyalgia, Fractures Endocrine Hx Endocrine Disorders: Yes Endocrine Disorders: Hypothyroidsim HEENT HX ENT Disorders: Yes HEENT Disorders: Cataract Loss of Vision: Denies Hearing Impairment: Hard of Hearing Cancer Hx Cancer: Yes (LUNG CANCER- > 13YRS AGO--S/P CHEMO AND RADIATION ) Cancer: Lung Psychosocial Hx Psychiatric Problems: No Integumentary HX Skin/Integumentary Disorder: Yes (SHINGLES in past, treated with OTC antifungal ordered by dr Muhammad?) Skin/Integumentary Disorders: Eczema Blood Transfusions Hx Blood Disorders: No Adverse Reaction to a Blood Tr: No Family Medical History Family Medial History: Family history: Asthma 19 FATHER, Onset:Unknown Family history: Cardiovascular disease 19 MOTHER, Onset:Unknown No Family History of: Abdominal aortic aneurysm [place]'s disease Alcoholism Aphasia Cancer Cancer of colon Cataract Chest pain Congenital heart disease Congestive heart failure Cystic fibrosis Dementia Dysphagia Family history: Allergy Family history: Alzheimer's disease Family history: Arthritis Family history: Breast disease Family history: Coronary thrombosis Family history: Diabetes mellitus Family history: Gastrointestinal disease Family history: Glaucoma Family history: Hypertension Family history: Osteoporosis Family history: Thyroid disorder Headache Hearing loss Heart disease Hereditary disease History of - anemia History of - disorder History of - respiratory disease History of drug abuse Human immunodeficiency virus (HIV) seropositivity Hypercholesterolemia Infertile Kidney disease Malignant neoplasm of lung Myocardial infarction Parkinson's disease Prostate cancer Psychotic disorder Seizure disorder Stroke Tuberculosis Visual impairment Exam Exam Vital Signs Date Time Temp Pulse Resp B/P (MAP) Pulse Ox O2 Delivery O2 Flow Rate FiO2 09/25/16 06:42 94 2.00 09/25/16 06:00 90 16 106/46 92 Nasal Cannula 2.00 09/25/16 05:00 87 12 100/33 93 Nasal Cannula 2.00 09/25/16 04:00 92 14 117/47 93 Nasal Cannula 2.00 09/25/16 04:00 2.00 09/25/16 03:00 93 14 127/56 95 Nasal Cannula 2.00 09/25/16 02:30 89 12 119/41 95 Nasal Cannula 2.00 09/25/16 02:06 96 2.00 09/25/16 02:00 87 12 120/50 95 Nasal Cannula 2.00 09/25/16 01:30 86 11 111/50 95 Nasal Cannula 2.00 09/25/16 01:00 87 14 140/58 93 Nasal Cannula 2.00 09/25/16 01:00 86 09/25/16 00:45 85 34 149/45 94 Nasal Cannula 2.00 09/25/16 00:30 82 13 102/58 94 Nasal Cannula 2.00 09/25/16 00:15 87 13 81/42 94 Nasal Cannula 2.00 09/25/16 00:00 93 15 114/60 95 Nasal Cannula 2.00 09/25/16 00:00 2.00 09/24/16 23:50 89 09/24/16 23:45 90 25 87/61 95 Nasal Cannula 2.00 09/24/16 23:30 96.7 90 18 132/62 96 Nasal Cannula 2.00 09/24/16 23:30 2.00 09/24/16 23:13 90 17 98 2.00 09/24/16 21:41 98 09/24/16 21:11 96 09/24/16 21:02 98.2 79 22 188/65 97 Room Air I & O 5/1/17 07:00 Intake Total 350 ml Balance 350 ml Capillary Refill: Less Than 3 Seconds Gastrointestinal: normal bowel sounds, non tender, soft Results Lab Laboratory Tests 09/24/16 21:10 09/25/16 03:40 Assessment/Plan Assessment/Plan COPDAE -SVNS, steroids- continue to monitor 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
--- NOTE | 2016-09-25 08:12 | Diagnostic Imaging Report ---
PROCEDURE: CT chest without contrast. TECHNIQUE: Multiple contiguous axial images were obtained through the chest without the use of intravenous contrast. Contrast was not administered due to elevated creatinine levels. INDICATION: Cough and congestion. History of lung cancer. COMPARISON: CT chest from 11/22/2015 FINDINGS: Lungs and airway: In the upper lobes, there are unchanged bandlike areas of traction bronchiectasis/fibrosis secondary to radiation changes. Similar changes are present in the superior segment of the bilateral lower lobes, greater on the right. Ill-defined linear 7 mm nodule in the right upper lobe along the fissure is also unchanged. No new airspace disease, mass or pulmonary nodule. Pleura: No pleural effusion or pneumothorax. Heart and mediastinum: No supraclavicular or axillary lymphadenopathy. Dense calcifications of the bilateral common carotid arteries and atherosclerotic aorta. No discrete hilar, mediastinal or juxtaphrenic lymphadenopathy, though evaluation is mildly limited without IV contrast. Normal heart size with changes of CABG. No pericardial effusion. Upper abdomen: Cholecystectomy. Extensive atherosclerotic calcifications of the abdominal aorta. Small hiatus hernia. Musculoskeletal: No destructive osseous lesions to suggest skeletal metastases. Stable changes of median sternotomy. IMPRESSION: 1. Stable post treatment changes in the medial/central aspect of both upper and lower lobes. No new airspace disease to indicate pneumonia or findings that would indicate disease recurrence. 2. Findings are in agreement with the preliminary report. Dictated by: Dictated on workstation # [id number]
--- NOTE | 2016-09-25 15:25 | Progress Note-Hospitalist ---
Standard Progress Note Progress Notes/Assess & Plan Date Seen 09/25/16 Assess & Plan/Chief Complaint The patient is a spunky 86-year-old white female. She has a past history of a intrathoracic malignancy treated by radiation therapy and chemotherapy 13 years ago. There has been no evidence of recurrence. She has a past history of coronary artery disease and stenting. She takes Plavix on a regular basis. She uses oxygen at at bedtime. She reports that yesterday she had a stinging sensation in her chest as if a blood vessel had broken. Shortly thereafter she began to cough up yellow sputum with at first blood and then blood-tinged. She felt more short of breath and came to the emergency room where she was evaluated and admitted. CT scan of the chest showed a right perihilar supra hilar process which on comparison to previous CTs appears unchanged. Physical exam: She is alert and spunky. She allows she is feeling much better. The SaO2 with nasal cannula oxygen is 95 percent or greater. There has been no charted fever. She reports the amount of sputum is decreased. The lungs show distant breath sounds but no wheezing or rhonchi. CV is regular without murmur. A midline sternotomy scar is noted. Abdomen is soft and without masses or tenderness. Extremities show no pedal edema. Impression: Hemoptysis. 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 3.bronchitis. 4.coronary artery disease with previous intervention. Plan: Transfer to floor and mobilize Labs Laboratory Tests 09/24/16 21:10 09/25/16 03:40 ANASTASIIA SILVA MD September 25, 2016 15:25
[2016-09-26] VITALS: BP 135/63
[2016-09-26] MEDS: RT-ALBUTEROL/IPRATROPIUM 3 ML (DUONEB) VIAL INH SCH ×3 (02:23→10:58)
[2016-09-26 04:00] VITALS: BP 109/50
[2016-09-26 08:00] VITALS: BP 155/67
--- NOTE | 2016-09-26 08:13 | Pulmonary Progress Note ---
Subjective Subjective/Events-last exam PT is feeling much better. No complications noted. Exam Exam Vital Signs Date Time Temp Pulse Resp B/P (MAP) Pulse Ox O2 Delivery O2 Flow Rate FiO2 09/26/16 07:32 91 09/26/16 04:00 98.0 110 18 109/50 93 Room Air 09/26/16 02:23 93 09/26/16 00:00 97.2 99 20 135/63 92 Nasal Cannula 2.00 09/25/16 22:13 100 2.00 09/25/16 21:00 95 09/25/16 20:23 98.4 95 18 140/65 95 Nasal Cannula 2.00 09/25/16 18:31 97.1 113 18 115/67 95 Nasal Cannula 2.00 09/25/16 16:00 97.1 113 18 115/67 95 Room Air 09/25/16 16:00 0.00 09/25/16 14:56 100 2.00 09/25/16 13:00 98 09/25/16 12:40 2.00 09/25/16 11:40 97.4 97 17 117/51 99 Nasal Cannula 2.00 I & O 09/26/16 07:00 Intake Total 3320 ml Output Total 3150 ml Balance 170 ml General Appearance: No Apparent Distress, WD/WN HEENT: PERRL/EOMI, TMs Normal, Normal ENT Inspection, Pharynx Normal Neck: Full Range of Motion, Normal Inspection Respiratory: Chest Non Tender, No Accessory Muscle Use, No Respiratory Distress , Decreased Breath Sounds Cardiovascular: Regular Rate, Rhythm, No Edema, No Gallop Capillary Refill: Less Than 3 Seconds Gastrointestinal: normal bowel sounds, non tender, soft Neurologic/Psychiatric: Alert, Oriented x3 Skin: Normal Color, Warm/Dry Results Lab Laboratory Tests 09/24/16 21:10 09/25/16 03:40 Assessment/Plan Assessment/Plan COPDAE -SVNS, steroids have been d/c'd 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 Resume previous home INH. I will have her f/u with me if 4-6 wks. Clinical Quality Measures AMI/AHF: ASA po Prior to arrival: No DVT/VTE Risk/Contraindication: Risk Factor Score Per Nursin RFS Level Per Nursing on Admit: 2=Moderate Other: Patient with hemoptysis on Plavix TEQUILA GARCIA DO September 26, 2016 08:13
--- NOTE | 2016-09-26 11:52 | Short Stay Summary-Hospitalist ---
HPI History of Present Illness: HPI/Chief Complaint The patient is an 86-year-old white female who was admitted after presenting with complaints of productive cough and increased dyspnea. She reported that she is had COPD for a number of years. She uses a nebulizer at home. She noted a stinging sensation in her upper chest after coughing on Sunday morning. Following that she noted increasing cough and colored sputum plus some blood streaking. She ultimately came to the emergency room Sunday evening. Chest x- ray showed abnormality in the right perihilar and suprahilar region. In examining previous films this had been present for some time and did not appear appreciably changed. She has a past history of lung cancer with radiation and chemotherapy some 13 years ago. There has been no evidence of recurrence. Her experience in the past and suggests that in these intervals she requires antibiotics to get better. She reports that she is feeling much better today and is able to perform at her usual level without O2 Source: patient Date Seen 09/26/16 Attending Physician Lorna Barton MD PCP Lorna Barton MD Referring Physician Date of Admission Sep 24, 2016 at 22:45 Home Medications & Allergies Home Medications Reviewed patient Home Medication Reconciliation Form Allergies Allergies Coded Allergies Tetanus Vaccines and Toxoid (Verified Allergy, Unknown, 08/03/11) erythromycin base (Verified Allergy, Unknown, 08/03/11) Uncoded Allergies flona ( Adverse Reaction, Intermediate, 01/15/16) Past Fwkigbo-Edokoa-Dkyrjd Hx Patient Social History Alcohol Use: Denies Use Recreational Drug Use: No Smoking Status: Former Smoker (VERY HEAVY SMOKER IN PAST ) Former smoker/When Quit: Dec 20, 1993 Type Used: Cigarettes Physical Abuse Screen: No Sexual Abuse: No Recent Foreign Travel: No Contact w/other who traveled: No Recent Hopitalizations: No Recent Infectious Disease Expo: No Immunizations Up To Date Tetanus Booster (TDap): Unknown Date of Pneumonia Vaccine: Apr 27, 2012 Seasonal Allergies Seasonal Allergies: No Surgeries HX Surgeries: Yes (COLON--RIGHT COLECTOMY; CARDIAC CATHS/ANGIOGRAMS AND MULTIPLE STENTS--CARIDAC, CAROTIDS, LEGS; EGD/COLONOSCOPY; ) Surgeries: Abdominal, Bowel Surgery, Cardiac, CABG, Coronary Stent, Hysterectomy, Tonsillectomy, Vascular Surgery Respiratory Hx Respiratory Disorders: Yes (COPD; 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) Cardiovascular Hx Cardiovascular Disorders: Yes (STENTS--CARDIAC, CAROTIDS, LEGS) Cardiac Disorders: Coronary Artery Disease, Heart Attack, High Cholesterol, Hypertension, Peripheral Vascular Neurological Hx Neurological Disorders: Yes Neurological Disorders: Headaches /Migraines, TIA Reproductive System Hx Reproductive Disorders: Yes Sexually Transmitted Disease: No HIV/AIDS: No Female Reproductive Disorders: Endometriosis Genitourinary Hx Genitourinary Disorders: No Gastrointestinal Hx Gastrointestinal Disorders: Yes Gastrointestinal Disorders: Gastroesophageal Reflux, Obstructive Bowel, Diverticulosis, Hiatal Hernia, Gall Bladder Disease Musculoskeletal Hx Musculoskeletal Disorders: Yes (ARTHRITIS; COMPRESSION FRACTURES THORACIC SPINE) Musculoskeletal Disorders: Osteoporosis, Arthritis, Fibromyalgia, Fractures Endocrine Hx Endocrine Disorders: Yes Endocrine Disorders: Hypothyroidsim HEENT HX ENT Disorders: Yes HEENT Disorders: Cataract Loss of Vision: Denies Hearing Impairment: Hard of Hearing Cancer Hx Cancer: Yes (LUNG CANCER- > 13YRS AGO--S/P CHEMO AND RADIATION ) Cancer: Lung Psychosocial Hx Psychiatric Problems: No Integumentary HX Skin/Integumentary Disorder: Yes (SHINGLES in past, treated with OTC antifungal ordered by dr Muhammad?) Skin/Integumentary Disorders: Eczema Blood Transfusions Hx Blood Disorders: No Adverse Reaction to a Blood Tr: No Family Medical History Family Hx: Family history: Asthma 19 FATHER, Onset:Unknown Family history: Cardiovascular disease 19 MOTHER, Onset:Unknown No Family History of: Abdominal aortic aneurysm [place]'s disease Alcoholism Aphasia Cancer Cancer of colon Cataract Chest pain Congenital heart disease Congestive heart failure Cystic fibrosis Dementia Dysphagia Family history: Allergy Family history: Alzheimer's disease Family history: Arthritis Family history: Breast disease Family history: Coronary thrombosis Family history: Diabetes mellitus Family history: Gastrointestinal disease Family history: Glaucoma Family history: Hypertension Family history: Osteoporosis Family history: Thyroid disorder Headache Hearing loss Heart disease Hereditary disease History of - anemia History of - disorder History of - respiratory disease History of drug abuse Human immunodeficiency virus (HIV) seropositivity Hypercholesterolemia Infertile Kidney disease Malignant neoplasm of lung Myocardial infarction Parkinson's disease Prostate cancer Psychotic disorder Seizure disorder Stroke Tuberculosis Visual impairment Review of Systems Constitutional: see HPI EENTM: no symptoms reported Respiratory: see HPI, cough, hemoptysis, phlegm, short of breath, wheezing Cardiovascular: no symptoms reported Gastrointestinal: no symptoms reported Genitourinary: no symptoms reported Musculoskeletal: no symptoms reported Skin: no symptoms reported Psychiatric/Neurological: No Symptoms Reported Physical Exam Physical Exam Vital Signs Vital Sign - Last 12Hours 09/24/16 09/24/16 21:02 23:13 Temp 98.2 Pulse 79 Resp 22 B/P (MAP) 188/65 Pulse Ox 97 O2 Delivery Room Air O2 Flow Rate 2.00 Capillary Refill : Less Than 3 Seconds General Appearance: No Apparent Distress, WD/WN Eyes: Bilateral Eye Normal Inspection HEENT: Normal ENT Inspection Neck: Full Range of Motion, Normal Inspection, Non Tender, Supple, Carotid Bruit Respiratory: Other (good air movement with coarse rhonchi on inspiration) Cardiovascular: Regular Rate, Rhythm, No Edema, No Gallop, No JVD, No Murmur, Normal Peripheral Pulses Gastrointestinal: Normal Bowel Sounds, No Organomegaly, No Pulsatile Mass, Non Tender, Soft Back: Normal Inspection, No CVA Tenderness, No Vertebral Tenderness Extremity: Normal Capillary Refill, Normal Inspection, Normal Range of Motion, Non Tender, No Calf Tenderness, No Pedal Edema Neurologic/Psychiatric: Alert, Oriented x3, No Motor/Sensory Deficits, Normal Mood/Affect Skin: Normal Color, Warm/Dry Lymphatic: No Adenopathy Results Results/Procedures Lab Laboratory Tests 09/24/16 21:10 09/25/16 03:40 Short Stay Diagnosis Discharge Diagnosis-Short Stay Admission Diagnosis 1.acute bronchitis/hemoptysis. 2.COPD. 3.past history of lung cancer with no evidence of recurrence in 13 years. 4.arteriosclerotic heart disease Final Discharge Diagnosis 1.acute bronchitis/hemoptysis. 2.COPD. 3.past history of lung cancer with no evidence of recurrence in 13 years. 4.arteriosclerotic heart disease Conclusion Plan Discharged to home. See discharge sequence for medications and treatments Copy Copies To 1: LORNA BARTON MD Clinical Quality Measures AMI/AHF: ASA po Prior to arrival: No DVT/VTE Risk/Contraindication: Risk Factor Score Per Nursin RFS Level Per Nursing on Admit: 2=Moderate Other: Patient with hemoptysis on Plavix ANASTASIIA SILVA MD September 26, 2016 11:52
[2016-09-26] MEDS ORDERED: CEFD300C3 PO (11:58)
--- NOTE | 2016-09-26 12:01 | Discharge Inst-Simple/Standard ---
Discharge Inst-Standard Discharge Medications New, Converted or Re-Newed RX: Transmitted to Pharmacy Patient Instructions/Follow Up Plan of Care/Instructions/FU: Present medications as on the discharge list. Your antibiotic has been transmitted to your local pharmacy. Activity as Tolerated: Yes Goal: Restore to previous state Discharge Diet: No Restrictions Return to The Hospital For: Decline in circumstance ANASTASIIA SILVA MD September 26, 2016 12:01
[2016-09-26 13:45] VITALS: BP 148/68
== END 2016-09-26 13:45 | disposition home or self-care (01) | DRG 191 ==
LOC: EDUNIT# 20:47 → ER 20:49 → ICU 22:45 → 4TH 09-25 15:45
PROVIDERS: ADMIT Internal Medicine; ATTEND Family Medicine
DX: J44.1 Chronic obstructive pulmonary disease with (acute) exacerbation (principal); R04.2 Hemoptysis; J70.1 Chronic and other pulmonary manifestations due to radiation; R09.02 Hypoxemia; I25.10 Atherosclerotic heart disease of native coronary artery without angina pectoris; I25.2 Old myocardial infarction; I10 Essential (primary) hypertension; E78.00 Pure hypercholesterolemia, unspecified; D64.9 Anemia, unspecified; I73.9 Peripheral vascular disease, unspecified; M81.0 Age-related osteoporosis without current pathological fracture; E03.9 Hypothyroidism, unspecified; M79.7 Fibromyalgia; K21.9 Gastro-esophageal reflux disease without esophagitis; G43.909 Migraine, unspecified, not intractable, without status migrainosus; M19.91 Primary osteoarthritis, unspecified site; W88.8XXA Exposure to other ionizing radiation, initial encounter; Z95.1 Presence of aortocoronary bypass graft; Z95.5 Presence of coronary angioplasty implant and graft; Z99.81 Dependence on supplemental oxygen; Z87.891 Personal history of nicotine dependence; Z86.73 Personal history of transient ischemic attack (TIA), and cerebral infarction without residual deficits; Z85.118 Personal history of other malignant neoplasm of bronchus and lung; Z92.21 Personal history of antineoplastic chemotherapy; Z92.3 Personal history of irradiation; Z79.02 Long term (current) use of antithrombotics/antiplatelets; Z90.49 Acquired absence of other specified parts of digestive tract
CPT/HCPCS: 36415; 71010; 71250; 80053; 82550; 82553; 83605; 83735; 83880; 84484; 85007; 85025; 85027; 85610; 85730; 87040; 87070; 87077; 87186; 87205; 87804; 93005; 94640; 94760; 96365; 96375

== ENCOUNTER 2016-11-03 05:51 | Outpatient (CLI) | payer MEDICARE ==
[~2016-11-03] VITALS: Ht 152.4 cm; Wt 52.6 kg
[~2016-11-03 05:51] MED LIST changes: +CEFD300C3 PO
== END 2016-11-03 13:53 ==
LOC: PREOP 05:51
PROVIDERS: ATTEND Surgery
DX: Z01.818 Encounter for other preprocedural examination (principal); D50.9 Iron deficiency anemia, unspecified

== ENCOUNTER 2016-11-07 10:37 | Day surgery (SDC) | payer MEDICARE ==
[~2016-11-07] VITALS: Ht 152.4 cm; Wt 52.6 kg
[2016-11-07 10:45] VITALS: BP 108/59
[2016-11-07] MEDS ORDERED: FLUMAZENIL (ROMAZICON) 0.1 MG/ML 5 ML VIAL INJ PRN (10:45)
[2016-11-07] MEDS ORDERED: NALOXONE 0.4 MG/ML 1 ML (NARCAN) VIAL IVP PRN (10:45)
[2016-11-07] MEDS ORDERED: NS IV 1000 ML 1,000 ML IV ONE (10:45)
[2016-11-07] MEDS ORDERED: GLYCOPYRROLATE 0.2 MG/ML (ROBINUL) 2 ML VIAL ONE (11:12)
[2016-11-07] MEDS ORDERED: MIDAZOLAM 5 MG/5 ML (VERSED) VIAL ONE (11:12)
[2016-11-07] MEDS ORDERED: fentaNYL INJECTION 100 MCG/2 ML AMP ONE (11:15)
[2016-11-07] MEDS ORDERED: proPOfol 200 MG/20 ML (DIPRIVAN) VIAL IV ONE (11:59)
--- NOTE | 2016-11-07 13:12 | Progress Note-Pre Operative ---
Pre-Operative Progress Note H&P Reviewed The H&P was reviewed, patient examined and no changes noted. Date Seen by Provider: Nov 07, 2016 Time Seen by Provider: 13:12 Date H&P Reviewed: Nov 07, 2016 Time H&P Reviewed: 13:12 Pre-Operative Diagnosis: iron def anemia AMAURY GUERRA DO Nov 07, 2016 1:12 pm
[2016-11-07] MEDS ORDERED: HURRICAINE EXT TUBE (BENZOCAINE) ONE (13:20)
[2016-11-07] MEDS ORDERED: HURRICAINE EXT TUBE (BENZOCAINE) XX ONE (13:45)
[2016-11-07] MEDS ORDERED: PANT40TA2 PO (14:27)
--- NOTE | 2016-11-07 14:28 | Progress Note-Post Operative ---
Post-Operative Progess Note Surgeon (s)/Facility Security Officer (s) Surgeon AMAURY GUERRA DO Facility Security Officer: na Pre-Operative Diagnosis iron def anemia Post-Operative Diagnosis paraesophageal hernia, gastritis, diverticulosis, ileocecal valve mucosal irritation Procedure & Operative Findings Date of Procedure 11/07/16 Procedure Performed/Findings egd c biopsy and colonoscopy with col biopsy ileocecal valve Anesthesia Type per [facility] Estimated Blood Loss Estimated blood loss (mL): scant Specimens/Packing Specimens Removed antrum, ileocecal valve AMAURY GUERRA DO Nov 07, 2016 2:27 pm
[2016-11-07 14:30] VITALS: BP 167/90
--- NOTE | 2016-11-07 14:32 | Discharge Inst-Simple/Standard ---
Discharge Inst-Standard Discharge Medications New, Converted or Re-Newed RX: Transmitted to Pharmacy Patient Instructions/Follow Up Plan of Care/Instructions/FU: Follow up with Dr. Katz in 2 weeks Stop Plavix and aspirin for 3 days Take medication as directed. Activity as Tolerated: Yes Discharge Diet: No Restrictions JENNY HUGHES APRN Nov 07, 2016 14:32
[2016-11-07 15:00] VITALS: BP 158/64
--- NOTE | 2016-11-07 23:54 | OPERATIVE REPORT ---
DATE OF SERVICE: PREOPERATIVE DIAGNOSIS: Iron deficiency anemia. POSTOPERATIVE DIAGNOSES: Paraesophageal hernia, gastritis, diverticulosis, and ileocecal valve mucosal irritation. PROCEDURE: Esophagogastroduodenoscopy with biopsy and colonoscopy with cold biopsy, Ileocecal valve. ANESTHESIA: Per MDA. ESTIMATED BLOOD LOSS: Scant. SPECIMENS: Antrum and ileocecal valve irritation. INDICATIONS: The patient is an 86-year-old female with iron deficiency anemia. She was recommended to have EGD and colonoscopy performed. She understands risks and benefits of procedure and wished to proceed with the procedure. Consent was signed in the chart. PROCEDURE: The patient was taken to the endoscopy suite, placed in left lateral recumbent position. Timeout was performed. Scope was inserted in mouth, down into esophagus, stomach and into the duodenum. There were no polyps, masses, or ulcerations within the duodenum. The scope was slowly retracted back to the stomach where it was further insufflated. There were some erythematous changes present consistent with some slight gastritis. Biopsy of the antrum was obtained. The scope was retroflexed noting a small paraesophageal hernia. There were no polyps, masses, or ulcerations. Scope was then returned to its normal position, slowly retracted back to the distal esophagus. There were no polyps, masses or, ulcerations. Scope was slowly retracted until completely removed, noting no other pathology. Digital rectal exam was performed and there were no palpable polyps, mass, or ulcerations. The scope was inserted in the rectum and advanced all the way to the cecum with slight difficulty. There was significant amount of diverticulosis. The scope had to be changed to a pediatric scope in order to make it through the colon to the cecum. The appendiceal orifice was visualized. The scope was inserted through the ileocecal valve, which had normal appearance. The scope was slowly retracted back. There was some irritation at the ileocecal valve, which I think was due to iatrogenic bleeding due to the scope. This was not visualized before. Biopsy of this area was obtained to rule out other pathology. Scope was then slowly retracted back. There were no polyps, masses, or ulcerations within the cecum, ascending, transverse, or descending colon. Within the descending colon, a significant amount of diverticulosis visualized and continued all the way through the sigmoid colon. There were no polyps, mass, or ulcerations visualized within the descending and sigmoid colon. In the rectum, the scope was also retroflexed noting no other pathology. Scope was returned to its normal position, slowly withdrawn until completely removed. The patient tolerated the procedure well without any complications. She was taken to the recovery room in stable condition. RECOMMENDATIONS: The patient will be started on Protonix 40 mg daily. She will also follow up on pathology results of the colon, biopsy of the ileocecal valve. If she has any problems prior to that, she should be reevaluated at that time. She does need another endoscopy unless change in symptoms or condition. Job ID: [id number] DocumentID: [id number] Dictated Date: 11/07/2016 14:32:18 Pharmacy Affairs Assistant Date: 11/07/2016 21:02:36 Dictated By: AMAURY GUERRA DO
== END 2016-11-07 15:15 | disposition home or self-care (01) ==
LOC: ENDO 10:37
PROVIDERS: ATTEND Surgery
DX: D50.9 Iron deficiency anemia, unspecified (principal); K44.9 Diaphragmatic hernia without obstruction or gangrene; K29.70 Gastritis, unspecified, without bleeding; K52.9 Noninfective gastroenteritis and colitis, unspecified; K57.30 Diverticulosis of large intestine without perforation or abscess without bleeding; Z95.1 Presence of aortocoronary bypass graft
CPT/HCPCS: 88305

== ENCOUNTER → 2016-11-23 | Outpatient (CLI) | payer MEDICARE ==
[~2016-11-23] MED LIST changes: +CATHETER FLUSH 10 ML SYR IV PRN; +IOHEXOL 350 MG/ML 100 ML (OMNIPAQUE 350) VIAL IV ONE; +NS 100 ML (IVPB) BAG IV ONE; +PANT40TA2 PO
--- NOTE | 2016-11-23 16:43 | Diagnostic Imaging Report ---
PROCEDURE: CT chest with contrast only. TECHNIQUE: Multiple contiguous axial images were obtained through the chest after administration of intravenous contrast. INDICATION: Cough. Hemoptysis. 75 mL of Omnipaque 350 is administered intravenously. COMPARISON: 09/24/2016. FINDINGS: There is chronic consolidation and scarring seen in the medial aspect of the right upper lobe and the superior segment of the right lower lobe with bronchiectasis seen. There is also an area of scarring seen along the mid aspect of the left upper lobe. Overall, no significant change is seen from 09/24/2016. There is no new consolidation, mass, or suspicious nodule seen. The heart size is normal. No pericardial or pleural effusion is seen. There is a small hiatal hernia. There is no mediastinal mass or lymphadenopathy. No hilar lymphadenopathy. No enlarged lymph nodes in the axillae as well. There is evidence of prior sternotomy with osseous bridging seen. Sections in the upper abdomen demonstrate surgical clips near the cholecystectomy bed and near the GE junction. Mild left convexity scoliosis is seen and suggestion of compression fracture in the upper thoracic spine which is also noted on 09/24/2016 is seen. IMPRESSION: Chronic consolidation and scarring is seen in the medial aspect of the upper and mid lung zones, similar to 09/24/2016 with no significant change. Dictated by: Dictated on workstation # [id number]
== END ==
LOC: RAD 15:33
PROVIDERS: ATTEND Internal Medicine Hematology & Oncology
DX: J98.4 Other disorders of lung (principal); R05 Cough; R04.2 Hemoptysis
CPT/HCPCS: 71260

== ENCOUNTER 2016-11-30 14:34 | Outpatient (RCR) | payer MEDICARE ==
[2016-10-05 14:24] LABS: BASOPHILS # (AUTO) 0.1 10^3/uL (0.0-0.1); BASOPHILS % (AUTO) 1 % (0-10); EOSINOPHILS # (AUTO) 0.3 10^3/uL (0.0-0.3); EOSINOPHILS % (AUTO) 3 % (0-10); LYMPHOCYTES # (AUTO) 1.2 X 10^3 (1.0-4.0); LYMPHOCYTES % (AUTO) 13 % (12-44); MEAN CORPUSCULAR HEMOGLOBIN 23 PG (25-34); MEAN CORPUSCULAR HGB CONC 31 G/DL (32-36); MEAN CORPUSCULAR VOLUME 75 FL (80-99); MEAN PLATELET VOLUME 8.9 FL (7.4-10.4); MONOCYTES # (AUTO) 1.3 X 10^3 (0.0-1.0); MONOCYTES % (AUTO) 13 % (0-12); NEUTROPHILS # (AUTO) 6.8 X 10^3 (1.8-7.8); NEUTROPHILS % (AUTO) 70 % (42-75); PLATELET COUNT 408 10^3/uL (130-400); RED BLOOD COUNT 3.97 10^6/uL (4.35-5.85); RED CELL DISTRIBUTION WIDTH 18.3 % (10.0-14.5); WHITE BLOOD COUNT 9.7 10^3/uL (4.3-11.0)
[2016-10-05 15:20] LABS: ALBUMIN 4.1 G/DL (3.2-4.5); BILIRUBIN,TOTAL 0.2 MG/DL (0.1-1.0); CALCIUM 9.3 MG/DL (8.5-10.1); TOTAL PROTEIN 7.2 G/DL (6.4-8.2)
[2016-10-05 15:41] LABS: THYROID STIMULATING HORMONE 17.61 UIU/ML (0.35-4.94)
[2016-10-05 15:48] LABS: POTASSIUM 4.2 MMOL/L (3.6-5.0)
[2016-11-15 14:37] LABS: BASOPHILS # (AUTO) 0.1 10^3/uL (0.0-0.1); BASOPHILS % (AUTO) 1 % (0-10); EOSINOPHILS # (AUTO) 0.3 10^3/uL (0.0-0.3); EOSINOPHILS % (AUTO) 3 % (0-10); LYMPHOCYTES # (AUTO) 1.6 X 10^3 (1.0-4.0); LYMPHOCYTES % (AUTO) 20 % (12-44); MEAN CORPUSCULAR HEMOGLOBIN 28 PG (25-34); MEAN CORPUSCULAR HGB CONC 32 G/DL (32-36); MEAN CORPUSCULAR VOLUME 87 FL (80-99); MEAN PLATELET VOLUME 9.4 FL (7.4-10.4); MONOCYTES # (AUTO) 0.8 X 10^3 (0.0-1.0); MONOCYTES % (AUTO) 10 % (0-12); NEUTROPHILS % (AUTO) 66 % (42-75); PLATELET COUNT 233 10^3/uL (130-400); RED BLOOD COUNT 4.62 10^6/uL (4.35-5.85); WHITE BLOOD COUNT 7.7 10^3/uL (4.3-11.0)
[2016-11-15 14:58] LABS: ALANINE AMINOTRANSFERASE 8 U/L (0-55); ALBUMIN 4.1 GM/DL (3.2-4.5); ANION GAP 6 MMOL/L (5-14); ASPARTATE AMINO TRANSFERASE 13 U/L (5-34); BILIRUBIN,TOTAL 0.3 MG/DL (0.1-1.0); BLOOD UREA NITROGEN 15 MG/DL (7-18); BUN/CREATININE RATIO 18 (0-20); CARBON DIOXIDE 25 MMOL/L (21-32); CHLORIDE 108 MMOL/L (98-107); CREATININE SERUM 0.85 MG/DL (0.60-1.30); GFR ESTIMATED > 60; GLUCOSE 87 MG/DL (70-105); HEMOLYSIS 8 (-100-29); ICTERUS 0.3 (-100-1.9); LIPEMIA 4 (-100-49); SODIUM 139 MMOL/L (135-145); TOTAL PROTEIN 6.9 GM/DL (6.4-8.2)
[~2016-11-30 14:34] MED LIST changes: -CATHETER FLUSH 10 ML SYR IV PRN; +FERRIC CARBOXYMALTOSE (CANCER) 750 MG in NS (IVPB) CANCER CENTER 250 ML IV SCH; -IOHEXOL 350 MG/ML 100 ML (OMNIPAQUE 350) VIAL IV ONE; -NS 100 ML (IVPB) BAG IV ONE
== END 2017-01-03 | disposition home or self-care (01) ==
LOC: ONC 14:34
PROVIDERS: ATTEND Internal Medicine Hematology & Oncology
DX: Z08 Encounter for follow-up examination after completed treatment for malignant neoplasm (principal); Z85.118 Personal history of other malignant neoplasm of bronchus and lung; D64.9 Anemia, unspecified; I25.10 Atherosclerotic heart disease of native coronary artery without angina pectoris; J44.9 Chronic obstructive pulmonary disease, unspecified; E78.5 Hyperlipidemia, unspecified; Z79.899 Other long term (current) drug therapy; I25.2 Old myocardial infarction; I10 Essential (primary) hypertension; E78.00 Pure hypercholesterolemia, unspecified; I73.9 Peripheral vascular disease, unspecified; M81.0 Age-related osteoporosis without current pathological fracture; E03.9 Hypothyroidism, unspecified; Z92.21 Personal history of antineoplastic chemotherapy; Z92.3 Personal history of irradiation; Z79.02 Long term (current) use of antithrombotics/antiplatelets
CPT/HCPCS: 36415; 80053; 82274; 82728; 83540; 84439; 84443; 85025; 96365; 99213

== ENCOUNTER 2017-03-21 13:12 | Outpatient (RCR) | payer MEDICARE ==
[~2017-03-21 13:12] MED LIST changes: -FERRIC CARBOXYMALTOSE (CANCER) 750 MG in NS (IVPB) CANCER CENTER 250 ML IV SCH; +METO50TA15 PO; -METO50TA2 PO
[2017-03-21 13:34] LABS: BASOPHILS # (AUTO) 0.1 10^3/uL (0.0-0.1); BASOPHILS % (AUTO) 1 % (0-10); EOSINOPHILS # (AUTO) 0.2 10^3/uL (0.0-0.3); EOSINOPHILS % (AUTO) 2 % (0-10); HEMATOCRIT 42 % (35-52); HEMOGLOBIN 14.2 G/DL (11.5-16.0); LYMPHOCYTES # (AUTO) 1.8 X 10^3 (1.0-4.0); LYMPHOCYTES % (AUTO) 21 % (12-44); MEAN CORPUSCULAR HEMOGLOBIN 33 PG (25-34); MEAN CORPUSCULAR HGB CONC 34 G/DL (32-36); MEAN CORPUSCULAR VOLUME 97 FL (80-99); MEAN PLATELET VOLUME 9.4 FL (7.4-10.4); MONOCYTES # (AUTO) 0.8 X 10^3 (0.0-1.0); MONOCYTES % (AUTO) 10 % (0-12); NEUTROPHILS # (AUTO) 5.7 X 10^3 (1.8-7.8); NEUTROPHILS % (AUTO) 67 % (42-75); PLATELET COUNT 277 10^3/uL (130-400); RED BLOOD COUNT 4.34 10^6/uL (4.35-5.85); RED CELL DISTRIBUTION WIDTH 13.3 % (10.0-14.5); WHITE BLOOD COUNT 8.6 10^3/uL (4.3-11.0)
[2017-03-21 13:58] LABS: ALBUMIN 4.2 GM/DL (3.2-4.5); BILIRUBIN,TOTAL 0.4 MG/DL (0.1-1.0); CALCIUM 9.2 MG/DL (8.5-10.1); CREATININE SERUM 0.95 MG/DL (0.60-1.30); MAGNESIUM 2.2 MG/DL (1.8-2.4); POTASSIUM 4.3 MMOL/L (3.6-5.0); TOTAL PROTEIN 7.7 GM/DL (6.4-8.2)
== END 2017-06-19 | disposition home or self-care (01) ==
LOC: ONC 13:12
PROVIDERS: ATTEND Internal Medicine Hematology & Oncology
DX: Z08 Encounter for follow-up examination after completed treatment for malignant neoplasm (principal); Z85.118 Personal history of other malignant neoplasm of bronchus and lung; M81.0 Age-related osteoporosis without current pathological fracture; D64.9 Anemia, unspecified; E03.9 Hypothyroidism, unspecified; I25.10 Atherosclerotic heart disease of native coronary artery without angina pectoris; J44.9 Chronic obstructive pulmonary disease, unspecified; I10 Essential (primary) hypertension; E78.5 Hyperlipidemia, unspecified; I73.9 Peripheral vascular disease, unspecified; I25.2 Old myocardial infarction; Z79.899 Other long term (current) drug therapy; Z79.02 Long term (current) use of antithrombotics/antiplatelets; Z92.21 Personal history of antineoplastic chemotherapy; Z92.3 Personal history of irradiation
CPT/HCPCS: 36415; 80053; 83735; 84443; 85025; 99213

== ENCOUNTER 2017-09-20 12:48 | Outpatient (RCR) | payer MEDICARE ==
[2017-09-20 13:12] LABS: BASOPHILS % (AUTO) 0 % (0-10); EOSINOPHILS # (AUTO) 0.1 10^3/uL (0.0-0.3); EOSINOPHILS % (AUTO) 1 % (0-10); HEMATOCRIT 36 % (35-52); HEMOGLOBIN 11.8 G/DL (11.5-16.0); LYMPHOCYTES # (AUTO) 1.1 X 10^3 (1.0-4.0); LYMPHOCYTES % (AUTO) 7 % (12-44); MEAN CORPUSCULAR HEMOGLOBIN 31 PG (25-34); MEAN CORPUSCULAR HGB CONC 33 G/DL (32-36); MEAN CORPUSCULAR VOLUME 97 FL (80-99); MEAN PLATELET VOLUME 8.7 FL (7.4-10.4); MONOCYTES # (AUTO) 1.4 X 10^3 (0.0-1.0); MONOCYTES % (AUTO) 9 % (0-12); NEUTROPHILS # (AUTO) 12.3 X 10^3 (1.8-7.8); NEUTROPHILS % (AUTO) 83 % (42-75); PLATELET COUNT 404 10^3/uL (130-400); RED BLOOD COUNT 3.76 10^6/uL (4.35-5.85); RED CELL DISTRIBUTION WIDTH 15.6 % (10.0-14.5); WHITE BLOOD COUNT 14.8 10^3/uL (4.3-11.0)
[2017-09-20 13:24] LABS: ALANINE AMINOTRANSFERASE 8 U/L (0-55); ALBUMIN 3.7 GM/DL (3.2-4.5); ALKALINE PHOSPHATASE 70 U/L (40-136); BILIRUBIN,TOTAL 0.3 MG/DL (0.1-1.0); BUN/CREATININE RATIO 18; CALCIUM 9.3 MG/DL (8.5-10.1); CARBON DIOXIDE 28 MMOL/L (21-32); CHLORIDE 103 MMOL/L (98-107); CREATININE SERUM 0.77 MG/DL (0.60-1.30); GFR ESTIMATED > 60; GLUCOSE 88 MG/DL (70-105); MAGNESIUM 2.1 MG/DL (1.8-2.4); POTASSIUM 4.1 MMOL/L (3.6-5.0); SODIUM 137 MMOL/L (135-145); TOTAL PROTEIN 7.8 GM/DL (6.4-8.2)
== END 2017-12-19 | disposition home or self-care (01) ==
LOC: ONC 12:48
PROVIDERS: ATTEND Internal Medicine Hematology & Oncology
DX: Z08 Encounter for follow-up examination after completed treatment for malignant neoplasm (principal); Z85.118 Personal history of other malignant neoplasm of bronchus and lung; M81.0 Age-related osteoporosis without current pathological fracture; D50.9 Iron deficiency anemia, unspecified; E03.9 Hypothyroidism, unspecified; I25.10 Atherosclerotic heart disease of native coronary artery without angina pectoris; J44.9 Chronic obstructive pulmonary disease, unspecified; I10 Essential (primary) hypertension; E78.5 Hyperlipidemia, unspecified; I73.9 Peripheral vascular disease, unspecified; I25.2 Old myocardial infarction; Z79.899 Other long term (current) drug therapy; Z79.02 Long term (current) use of antithrombotics/antiplatelets; Z92.21 Personal history of antineoplastic chemotherapy; Z92.3 Personal history of irradiation
CPT/HCPCS: 36415; 80053; 83735; 84443; 85025; 99213

== ENCOUNTER → 2018-05-07 | Outpatient (CLI) | payer MEDICARE ==
[~2018-05-07] VITALS: Ht 152.4 cm; Wt 50.8 kg
[~2018-05-07] MED LIST changes: +REGADENOSON 0.4 MG/5 ML SYR (LEXISCAN) IV ONE
[2018-05-07] MEDS: CATHETER FLUSH 10 ML SYR IV PRN ×2 (11:20→13:03)
[2018-05-07 12:41] VITALS: BP 180/69
--- NOTE | 2018-05-13 14:14 | STRESS TEST ---
DATE OF SERVICE: 05/07/2018 RESTING AND POST REGADENOSON TECHNETIUM-99M TETROFOSMIN SPECT CT IMAGING ORDERING PHYSICIAN: Damaso Schumacher MD. PRIMARY PHYSICIAN: Shahid Barton MD. CLINICAL DIAGNOSES: Coronary artery disease, hypertension and hyperlipidemia. Baseline images were carried out after injection of 10.95 mCi technetium-99m Tetrofosmin. This was followed by 0.4 mg Regadenoson and 29.4 mCi of technetium-99m Tetrofosmin for stress imaging. The electrocardiogram showed sinus rhythm at baseline. Sinus arrhythmia was seen. The electrocardiogram did not change significantly with the Regadenoson infusion. The patient tolerated the procedure well. Review of images at rest and following stress does not indicate any significant perfusion defects consistent with any significant myocardial ischemia or infarction. Gated images show normal global left ventricular systolic function with normal regional wall motion. Left ventricular ejection fraction is calculated to be 83%. Left ventricular end diastolic volume is 22 mL. TID is absent (1.03). CONCLUSIONS: 1. No evidence of any significant myocardial ischemia or infarction on this study. 2. Normal to hyperdynamic left ventricular systolic function with a calculated ejection fraction of 83%. 3. No regional wall motion abnormalities seen on this study. Job ID: [id number] DocumentID: [id number] Dictated Date: 05/13/2018 13:26:27 Negotiator Date: 05/13/2018 14:14:13 Dictated By: DAMASO SCHUMACHER MD, MA, FACP, FACC,
== END ==
LOC: RAD 11:08
PROVIDERS: ATTEND Internal Medicine Cardiovascular Disease
DX: I25.10 Atherosclerotic heart disease of native coronary artery without angina pectoris (principal); J21.9 Acute bronchiolitis, unspecified; I65.23 Occlusion and stenosis of bilateral carotid arteries; J43.9 Emphysema, unspecified; I10 Essential (primary) hypertension; E78.5 Hyperlipidemia, unspecified
CPT/HCPCS: 78452; 93017

== ENCOUNTER → 2018-06-10 | Outpatient (CLI) | payer MEDICARE ==
[~2018-06-10] MED LIST changes: -REGADENOSON 0.4 MG/5 ML SYR (LEXISCAN) IV ONE
== END ==
LOC: CARD 11:00
PROVIDERS: ATTEND Internal Medicine Cardiovascular Disease
DX: I25.10 Atherosclerotic heart disease of native coronary artery without angina pectoris (principal); I10 Essential (primary) hypertension; E78.5 Hyperlipidemia, unspecified; J20.9 Acute bronchitis, unspecified; J44.0 Chronic obstructive pulmonary disease with (acute) lower respiratory infection; I08.3 Combined rheumatic disorders of mitral, aortic and tricuspid valves
CPT/HCPCS: 93306

== ENCOUNTER 2019-01-07 06:44 | Day surgery (SDC) | payer MEDICARE ==
[2019-01-07] VITALS (9 sets, daily range): BP systolic 161–186; BP diastolic 61–74
[~2019-01-07] VITALS: Ht 152.4 cm; Wt 50.8 kg
[2019-01-07] MEDS ORDERED: NS IV 1000 ML 1,000 ML ONE (06:50)
[2019-01-07] MEDS ORDERED: LIDOCAINE 1% INJ 20 ML 20 ML VIAL ONE (06:50)
[2019-01-07] MEDS ORDERED: HEParin (CATH LAB) 2,000 ML IV ONE (06:50)
[2019-01-07] MEDS ORDERED: NS IV 1000 ML 1,000 ML IV SCH ×2 (07:00→10:31)
[2019-01-07 07:37] LABS: HEMOGLOBIN 12.7 G/DL (11.5-16.0); MEAN PLATELET VOLUME 9.2 FL (7.4-10.4); RED CELL DISTRIBUTION WIDTH 13.2 % (10.0-14.5); WHITE BLOOD COUNT 6.8 10^3/uL (4.3-11.0)
[2019-01-07] MEDS ORDERED: CALC-794 PO (07:42)
[2019-01-07] MEDS ORDERED: CLOP75TA28 PO (07:42)
[2019-01-07 07:51] LABS: PROTHROMBIN TIME PATIENT 13.1 SEC (12.2-14.7)
[2019-01-07] MEDS ORDERED: MIDAZOLAM 5 MG/5 ML (VERSED) VIAL ONE (08:01)
[2019-01-07] MEDS ORDERED: fentaNYL INJECTION 100 MCG/2 ML AMP ONE (08:01)
[2019-01-07 08:03] LABS: ALBUMIN 4.3 GM/DL (3.2-4.5); BILIRUBIN,TOTAL 0.4 MG/DL (0.1-1.0); CALCIUM 9.7 MG/DL (8.5-10.1); CREATININE SERUM 0.91 MG/DL (0.60-1.30); POTASSIUM 4.3 MMOL/L (3.6-5.0)
--- NOTE | 2019-01-07 10:00 | NUR ---
JACKSON WESTFALL admitted to room CU2-1, with an admitting diagnosis of HEART CATHETERIZATION, on 02/07/2019 from [facility], accompanied by LUPE CABELLO.JACKSON WESTFALL introduced to surroundings, call light, bed controls, phone, TV, temperature control, lights, meal times, smoking policy, visitor policy, side rail policy, bathrooms and showers. Patient Rights given to patient in the handbook. JACKSON WESTFALL verbalizes understanding that [facility] is not responsible for the loss or damage to any personal effects or valuables that are kept in the patients posession during their hospitalization. JACKSON WESTFALL verbalizes understanding of Interdisciplinary Patient Education. Patient and/or family were informed about the Rapid Response Team and its purpose.
--- NOTE | 2019-01-07 10:31 | Cardiac Procedure Note-CS/ASA ---
Pre-Procedure Note Pre-Op Procedure Note H&P Reviewed The H&P was reviewed, patient examined and no changes noted. Date H&P Reviewed: Jan 07, 2019 Time H&P Reviewed: 08:15 Conscious Sedation Pre-Proced Time 08:15 ASA Score 4 For ASA 3 and 4: Consider anesthesia and medical clearance. Also, for patients with a history of failed moderate sedation consider anesthesia. Airway Lungs Heart ASA score ASA 1: a normal healthy patient ASA 2: a patient with a mild systemic disease (mid diabetes, controlled hypertension, obesity ASA 3: a patient with a severe systemic disease that limits activity (angina, COPD, prior Myocardial infarction) ASA 4: a patient with an incapacitating disease that is a constant threat to life (CHF, renal failure) ASA 5: a moribund patient not expected to survive 24 hrs. (ruptured aneurysm) ASA 6: a declared brain- patient whose organs are being harvested. For emergent operations, add the letter E after the classification Mallampati Classification Grade 2 Sedation Plan Analgesia, Amnesia, Plan communicated to team members, Discussed options with patient/fam, Discussed risks with patient/fam The patient is an appropriate candidate to undergo the planned procedure, sedation, and anesthesia. The patient immediately re-assessed prior to indication. INA LEE MD FACP FAC CCDS Jan 07, 2019 10:31
[2019-01-07] MEDS ORDERED: ASPI-999 PO (10:34)
--- NOTE | 2019-01-07 10:36 | Discharge Inst-Cardiology ---
Discharge Inst-Cardiac Problems Reviewed?: Yes Discharge Medications New Medications: Aspirin (Aspirin) 81 Mg Tab.chew 81 MG PO DAILY, #90 TAB Continued Medications: Acetaminophen (Tylenol) 325 Mg Tablet 650 MG PO Q4H PRN for PAIN, TAB TAKES 2 (325MG) TABLETS Albuterol/Ipratropium (Duoneb Rt) 3 Ml Nebu 3 ML NEB TID PRN for SHORTNESS OF BREATH Albuterol/Ipratropium (Combivent Respimat Inhal [place]) 4 Gm Aero 1 PUFF INH QID PRN for SHORTNESS OF BREATH, INHALER Calcium Carb & Citrate/Vit D3 (Calcium + D3 ER Tablet) 1 Each Tablet.er 1 EACH PO DAILY, TAB Clopidogrel Bisulfate (Clopidogrel) 75 Mg Tablet 75 MG PO DAILY, TAB Levothyroxine Sodium (Levothyroxine Sodium) 50 Mcg Tablet 50 MCG PO DAILY, TAB Meclizine HCl (Meclizine HCl) 25 Mg Tablet 25 MG PO TID PRN for VERTIGO, TAB Metoprolol Tartrate (Metoprolol Tartrate) 50 Mg Tablet 25 MG PO BID, TAB TAKES 1/2 (50MG) TABLET Simvastatin (Simvastatin) 40 Mg Tablet 40 MG PO HS, TAB INA LEE MD FACP FAC CCDS Jan 07, 2019 10:36
--- NOTE | 2019-01-07 10:36 | Discharge Inst-Post CATH ---
Discharge Inst-CATH/EP Problems Reviewed?: Yes Post Cardiac Cath/EP D/C Inst Follow Up/Plan F/u with Dr Schumacher in 2 weeks F/u with Dr Kearns next week No smoking CARDIAC CATH/EP PROCEDURE DISCHARGE INSTRUCTIONS ACTIVITY * Go Home directly and rest. * Limit activity of the leg (or wrist if it was used) for 7 days including aerobics, swimming, jogging, bicycling, etc. * Restrict stair-climbing for 7 days if possible, if not, climb up with your non-cath leg, then bring together on the same step. * Avoid lifting, pushing, pulling or excessive movement of the affected extremity for 7 days. * Customary sexual activity may be resumed after 2 days-use caution not to use a position that strains or causes pain to the affected extremity. * No driving for 24 hours. * NO SMOKING. * Avoid straining for bowel movements for 7 days. * Gentle walking on level ground is allowed. * Returning to work will depend on the type of procedure and the results. Your doctor will discuss this with you. CALL YOUR DOCTOR FOR ANY OF THE FOLLOWING: *If bleeding from the puncture site occurs- Apply gentle pressure to site with clean cloth and call your doctor or EMS. * If a knot or lump forms under the skin, increases in size, or causes pain. * If bruising appears to be worsening or moving further down your leg instead of disappearing. * Temperature above 101 F. CARE OF YOUR GROIN INCISION; * Bruising or purple discoloration of the skin near the puncture site is common. * You may shower only, no bathtub bathing for 5 days. Be careful to avoid slipping as your leg may feel stiff. * If a closure device was used on your femoral artery, please see the attached guide regarding care of the device and your leg. * Leave dressing on FOR 24 hours. CARE OF YOUR WRIST INCISION; * Bruising or purple discoloration of the skin near the puncture site is common. * You may shower. * DO NOT submerge wrist. * Leave dressing on FOR 24 hours. INA SCHUMACHER MD [facility] CCDS Jan 07, 2019 10:36
[2019-01-07] MEDS ORDERED: PATIENT MAY USE OWN MEDS, ALL PO SCH (10:45)
--- NOTE | 2019-01-07 12:40 | CARDIAC CATHETERIZATION ---
DATE OF SERVICE: 01/07/2019 CARDIAC CATHETERIZATION REPORT The patient is an 88-year-old lady who is known to have coronary artery disease and marked peripheral arterial disease. She has had several peripheral interventions in [place], [place]. Lately, she has developed left arm claudication and the blood pressure in the left arm is much lower and the pulse on that side is very weak. She had a surgical evaluation by Dr. Kearns at [facility] who recommended cardiac catheterization and angiography of the aortic valve and the neck arteries. Informed consent was obtained. PROCEDURE: She was brought to the cardiac catheterization laboratory in a fasting state. Right groin was prepared and draped in usual sterile fashion. Lidocaine 1% was used for local anesthesia. Modified Seldinger technique was used to advance a 5-[place] sheath in right femoral artery. A 5-[place] JL3.5 catheter was used for left coronary angiography. A 5-[place] JR4 catheter was used to try and engage the right coronary artery and the saphenous vein grafts. We were not able to selectively engage the right coronary artery. The vein grafts appeared occluded. We used a 5-[place] pigtail catheter to carry out left heart catheterization, left ventricular angiography. We pulled back the pigtail into the aortic root and aortic root angiography was performed. We pulled back the pigtail to the aortic arch and aortic arch angiography was performed. The catheter was then removed. Manual pressure was used to achieve hemostasis following sheath removal. She tolerated the procedure well. HEMODYNAMICS: Left ventricular end-diastolic pressure following coronary angiography was 12 mmHg. There is no significant pressure gradient on pullback across the aortic valve. Ascending aortic pressure was 127/43 with a mean of 78 mmHg. CORONARY ANGIOGRAPHY: Left main coronary artery shows approximately 30% proximal and distal stenosis. The left anterior descending artery has multiple 60 to 70% stenoses throughout its proximal and mid portions. The left circumflex artery has diffuse mild to moderate disease. Right coronary artery is occluded at its ostium and is collateralized from the left coronary system. CORONARY GRAFT ANGIOGRAPHY: The left internal mammary artery graft to the mid left anterior descending artery is patent, but is visualized only retrogradely because the left subclavian is occluded and the Lopez could not be approached antegrade. There are two saphenous vein grafts, both of which are occluded at their ostia. AORTIC ROOT ANGIOGRAPHY: Aortic root angiography did not indicate any significant aortic root enlargement or aortic regurgitation. The right coronary and the aortocoronary saphenous vein grafts appeared occluded. AORTIC ARCH ANGIOGRAPHY: Aortic arch angiography shows that the right brachiocephalic trunk is intact. There is a widely patent stent in the right common carotid artery. The left common carotid artery is standard and is completely occluded. The left subclavian artery appears to have been stented and is completely occluded. LEFT VENTRICULAR ANGIOGRAPHY No wall motion abnormality seen. LVEF is estimated to be approximately 60% CONCLUSIONS: 1. Coronary artery disease primarily consisting of moderate to moderately severe disease of the left anterior descending and an occluded right coronary that is collateralized from the left coronary system. 2. Patent left internal mammary artery graft that is seen only retrogradely. The left subclavian is occluded and the graft could not be approached antegrade. 3. Occluded saphenous vein grafts (aortocoronary grafts). 4. Normal global left ventricular systolic function with an ejection fraction approximately 60%. 5. Patent stent in the right common carotid. 6. Occlusion of the ostial and proximal left common carotid. 7. Occlusion of the ostial and proximal left subclavian. DISCUSSION AND RECOMMENDATIONS: We discussed the results of the procedure with Dr. Kearns of the cardiovascular surgical service at [facility]. Dr. Kearns will see the patient for evaluation of her left arm revascularization. Risk factor modification has been reviewed with the patient. Close outpatient followup is advised. Job ID: [id number] DocumentID: [id number] Dictated Date: 01/07/2019 09:21:57 Pad Machine Operator Date: 01/07/2019 12:40:06 Dictated By: INA LEE MD, MA, FACP, FACC, MTDD
--- NOTE | 2019-01-07 12:54 | Cardiology History & Physical ---
[facility]-Cardiology Cardiology H&P Date of Admission 01-07-19 Primary Care Physician Shahid Barton MD Attending Physician Damaso Schumacher MD Facp Fac Ccds Consulting Physician [facility] Lately has had L arm discomfort and weakening with use of L arm. These symptoms present and progressive for a few months She is currently reporting no c/o CP, palpitations, syncope or near syncope. She does not report any LE edema. She has chronic mild exertional dyspnea which is unchanged Review of Systems-Cardiology Review of Systems Constitutional: No chills, No fever Eyes: No vision change Ears/Nose/Throat: No epistaxis, No recent hearing loss Respiratory: As described under HPI Cardiovascular: As described under HPI Gastrointestinal: No diarrhea, No vomiting Genitourinary: No hematuria Skin: No rash on exposed areas Psychiatric/Neurological: No focal weakness, No syncope Hematologic: No bleeding abnormalities AWF-Tmxewo-Awnyee Hx Patient Social History Alcohol Use: Denies Use Recreational Drug Use: No Smoking Status: Former Smoker Former smoker/When Quit: Dec 20, 1993 Type Used: Cigarettes Recent Foreign Travel: No Immunizations Up To Date Tetanus Booster (TDap): Unknown Date of Pneumonia Vaccine: Apr 27, 2012 Past Medical History PMH As described under Assessment. Family Medical History Family History: Family history: Asthma 19 FATHER, Onset:Unknown Family history: Cardiovascular disease 19 MOTHER, Onset:Unknown No Family History of: Abdominal aortic aneurysm Monona's disease Alcoholism Aphasia Cancer Cancer of colon Cataract Chest pain Congenital heart disease Congestive heart failure Cystic fibrosis Dementia Dysphagia Family history: Allergy Family history: Alzheimer's disease Family history: Arthritis Family history: Breast disease Family history: Coronary thrombosis Family history: Diabetes mellitus Family history: Gastrointestinal disease Family history: Glaucoma Family history: Hypertension Family history: Osteoporosis Family history: Thyroid disorder Headache Hearing loss Heart disease Hereditary disease History of - anemia History of - disorder History of - respiratory disease History of drug abuse Human immunodeficiency virus (HIV) seropositivity Hypercholesterolemia Infertile Kidney disease Malignant neoplasm of lung Myocardial infarction Parkinson's disease Prostate cancer Psychotic disorder Seizure disorder Stroke Tuberculosis Visual impairment Allergies and Home Medications Allergies Coded Allergies: Tetanus Vaccines and Toxoid (Verified Allergy, Unknown, 08/03/11) amoxicillin (Verified Allergy, Unknown, RASH, 11/03/16) erythromycin base (Verified Allergy, Unknown, 08/03/11) Uncoded Allergies: flona (Adverse Reaction, Intermediate, 01/15/16) Home Medications Acetaminophen 325 Mg Tablet, 650 MG PO Q4H PRN for PAIN, (Reported) TAKES 2 (325MG) TABLETS Albuterol/Ipratropium 3 Ml Nebu, 3 ML NEB TID PRN for SHORTNESS OF BREATH, (Reported) Albuterol/Ipratropium 4 Gm Aero, 1 PUFF INH QID PRN for SHORTNESS OF BREATH, (Reported) Aspirin 81 Mg Tab.chew, 81 MG PO DAILY Prescribed by: DAMASO SCHUMACHER on 01/07/19 1034 Calcium Carb & Citrate/Vit D3 1 Each Tablet.er, 1 EACH PO DAILY, (Reported) Clopidogrel Bisulfate 75 Mg Tablet, 75 MG PO DAILY, (Reported) Levothyroxine Sodium 50 Mcg Tablet, 50 MCG PO DAILY, (Reported) Meclizine HCl 25 Mg Tablet, 25 MG PO TID PRN for VERTIGO, (Reported) Metoprolol Tartrate 50 Mg Tablet, 25 MG PO BID, (Reported) TAKES 1/2 (50MG) TABLET Simvastatin 40 Mg Tablet, 40 MG PO HS, (Reported) Patient Home Medication List Home Medication List Reviewed: Yes Physical Exam-Cardiology Physical Exam Vital Signs/I&O 01/07/19 01/07/19 01/07/19 01/07/19 06:53 10:00 10:00 10:00 Temp 96.8 97.3 Pulse 78 70 Resp 16 B/P (MAP) 183/68 (106) 186/74 (111) 186/74 (111) Pulse Ox 93 95 97 O2 Delivery Room Air Room Air Room Air Room Air 01/07/19 01/07/19 01/07/19 01/07/19 10:04 10:15 10:30 10:45 Temp 96.9 97.0 96.1 Pulse 67 66 67 64 B/P (MAP) 171/73 (105) 173/65 (101) 161/61 (94) Pulse Ox 94 92 97 O2 Delivery Room Air Room Air Room Air 01/07/19 01/07/19 01/07/19 11:00 11:30 12:30 Temp 97.6 97.1 Pulse 64 71 Resp 12 B/P (MAP) 168/63 (98) 165/67 (99) Pulse Ox 89 91 O2 Delivery Room Air Room Air Capillary Refill : NONE Constitutional: AAO x 3 HEENT: PERRL, hard of hearing Neck: No carotid bruit Respiratory: No accessory muscle use, No respiratory distress; chest expansion is symmetric, chest is bilaterally symmetric, lungs clear to auscultation, other (prolonged expiratory phase) Cardiovascular: regular rate-rhythm; No JVD; S1 and S2 Gastrointestinal: soft, round, audible bowel sounds Rectal: deferred Extremities: no lower extremity edema bilateral Neurologic/Psychiatric: grossly intact Skin: No rash on exposed areas, No ulcerations on exposed areas Data Review Labs Laboratory Tests 01/07/19 07:25: White Blood Count 6.8, Red Blood Count 3.58L, Hemoglobin 12.7, Hematocrit 38, Mean Corpuscular Volume 107H, Mean Corpuscular Hemoglobin 35H, Mean Corpuscular Hemoglobin Concent 33, Red Cell Distribution Width 13.2, Platelet Count 254, Mean Platelet Volume 9.2, Prothrombin Time 13.1, INR Comment 1.0, Activated Partial Thromboplast Time 32, Sodium Level 141, Potassium Level 4.3, Chloride Level 105, Carbon Dioxide Level 24, Anion Gap 12, Blood Urea Nitrogen 15, Creatinine 0.91, Estimat Glomerular Filtration Rate 58, BUN/Creatinine Ratio 16, Glucose Level 68L, Calcium Level 9.7, Corrected Calcium 9.5, Total Bilirubin 0.4, Aspartate Amino Transf (AST/SGOT) 11, Alanine Aminotransferase (ALT/SGPT) 8, Alkaline Phosphatase 79, Total Protein 8.0, Albumin 4.3, Triglycerides Level 119, Cholesterol Level 129, LDL Cholesterol Direct 64, VLDL Cholesterol 24, HDL Cholesterol 43 Laboratory Tests 01/07/19 07:25 A/P-Cardiology Assessment/Admission Diagnosis Left arm claudication due to arterial insufficiency with chronically low blood pressure in the left arm. She has been seen at Dr. Sierra office. The pa frantz has previously refused any intervention for left arm arterial insufficiency. She is now more symptomatic and willing to consider intervention Echocardiogram of May 2018 showed LVEF 60-65%. Grade 1 diastolic dysfunction. Mildly calcified mitral annulus with mild MR. Mild AoV regurg. PASP approx 25 mmHg Peripheral arterial disease that has been managed by Dr. Kearns of Vascular Surgery at [facility]. Stenting of the left superficial and the left iliac arterial system in November [address] Kearns. In September 2013 balloon angioplasty of the right SFA stent with a 6 x 40 balloon x1 and the right iliac stent with a 7x40 balloon x 3. Complex carotid arterial disease. Dr. Kearns had attempted left carotid stenting in September 2009, which failed. In March 2011, Dr. Kearns carried out right carotid stenting, which was successful. Carotids are follwed by Dr. Kearns. Carotid u/s at Dr Kearns's on 09/19/17: chronic occ of the L ICA, patent stents in the LILLY, likely significant stenosis of the L subclavian History of right femoral artery occlusion in 2009, as a complication of percut aneous intervention to the left carotid artery. She had treatment of her right femoral artery occlusion by Dr. Garcia and this consisted of endarterectomy and patch angioplasty. Most recent evaluation by Dr. Garcia was an angiogram, which was reported to have shown small vessel tibial outflow disease bilaterally (July 2010). Coronary artery disease with coronary artery bypass surgery consisting of left internal mammary artery graft to left anterior descending artery and saphenous vein graft to obtuse marginal and posterior descending arteries in May 2007. Myocardial perfusion imaging of Apr 2018 did not indicate myocardial ischemia or infarction and ventricular function was normal with an ejection fraction of 83%. Hypertension, controlled. Fibromyalgia Non-small cell lung cancer, status post fine needle biopsy on 08/25/97. Status post chemotherapy with Carboplatin and Taxol. Status post radiation therapy. Chronic backache and history of sciatica. Hyperlipidemia Hypothyroidism, managed by pcp Admission Status: Other Discussion and Recomendations D/t recent left arm claudication and the blood pressure in the left arm is much lower and the pulse on that side is very weak. She had a surgical evaluation by Dr. Kearns at [facility] who recommended cardiac catheterization and angiography of the aortic valve and the neck arteries. Procedure, risks, benefits and potential complications of cardiac cath, angiography with possible ad hoc intervention has been discussed. Questions answered. She provides informed consent. SAFIA SANTOYO Jan 07, 2019 12:54
== END 2019-01-07 13:13 | disposition home or self-care (01) ==
LOC: CATH 06:44 → ICU 09:56 → CATH 13:13
PROVIDERS: ATTEND Internal Medicine Cardiovascular Disease
DX: I25.810 Atherosclerosis of coronary artery bypass graft(s) without angina pectoris (principal); I10 Essential (primary) hypertension; I73.9 Peripheral vascular disease, unspecified; E03.9 Hypothyroidism, unspecified; G89.29 Other chronic pain; M54.9 Dorsalgia, unspecified; J44.9 Chronic obstructive pulmonary disease, unspecified; C76.1 Malignant neoplasm of thorax; K57.90 Diverticulosis of intestine, part unspecified, without perforation or abscess without bleeding; E78.5 Hyperlipidemia, unspecified; D50.9 Iron deficiency anemia, unspecified; C34.90 Malignant neoplasm of unspecified part of unspecified bronchus or lung; M79.7 Fibromyalgia; Z87.39 Personal history of other diseases of the musculoskeletal system and connective tissue; Z88.1 Allergy status to other antibiotic agents; Z88.8 Allergy status to other drugs, medicaments and biological substances; Z87.891 Personal history of nicotine dependence; Z79.01 Long term (current) use of anticoagulants; Z79.82 Long term (current) use of aspirin; Z88.7 Allergy status to serum and vaccine; Z82.49 Family history of ischemic heart disease and other diseases of the circulatory system; Z82.5 Family history of asthma and other chronic lower respiratory diseases
CPT/HCPCS: 36415; 80053; 80061; 85027; 85610; 85730; 87081; 93459

== ENCOUNTER 2020-10-31 14:51 | Observation (INO) | payer MEDICARE ==
[~2020-10-31] VITALS: Ht 151 cm; Wt 39.5 kg
[~2020-10-31 14:51] MED LIST changes: +ASPI-999 PO; +CALC-794 PO; -MECL-106 PO; +MECL-149 PO; +SIMV40TA25 PO
--- NOTE | 2020-10-31 15:50 | ED General ---
General Chief Complaint: General Problems/Pain Stated Complaint: VOMMITTING/SOB Nursing Triage Note: TO ED PER W/C ACCOMPIED BY DAUGHTER WHO REPORTS WAS DISCHARGED FROM [facility] ON OCTOBER 16 WAS IN HOSPITAL FOR PNEUMONIA AND LOW K. AND HAD LUNG DRAINED. DAUGHTER UNHAPPY WITH CARE AT [facility]. REPORTS SINCE SHE IS UNABLE TO EAT. COUGHING TILL SHE CHOCKED. Nursing Sepsis Screen: No Definite Risk Source of Information: Patient Exam Limitations: No Limitations History of Present Illness Date Seen by Provider: Oct 31, 2020 Time Seen by Provider: 15:49 Initial Comments To ER by private vehicle accompanied by her daughter with whom she lives. Daughter reports she has had an ongoing cough and shortness of breath and has had a general decline in health over the past few weeks. Prior to this she was released from [facility] after a 2-week admission, discharged on 10/16/2020. She was admitted for general weakness, hypokalemia. She follows with Dr. Villanueva out of [place]. Daughter reports she does not drink much and certainly does not eat much and when she does eat she usually vomits immediately thereafter. Timing/Duration: 1-2 Days Severity: Moderate Associated Systoms: Cough, Nausea/Vomiting, Weakness Allergies and Home Medications Allergies Coded Allergies: Tetanus Vaccines and Toxoid (Verified Allergy, Unknown, 08/03/11) amoxicillin (Verified Allergy, Unknown, RASH, 11/03/16) erythromycin base (Verified Allergy, Unknown, 08/03/11) Uncoded Allergies: flona (Adverse Reaction, Intermediate, 01/15/16) Home Medications Acetaminophen 325 Mg Tablet, 650 MG PO Q4H PRN for PAIN, (Reported) TAKES 2 (325MG) TABLETS Albuterol/Ipratropium 3 Ml Nebu, 3 ML NEB TID PRN for SHORTNESS OF BREATH, (Reported) Albuterol/Ipratropium 4 Gm Aero, 1 PUFF INH QID PRN for SHORTNESS OF BREATH, (Reported) Aspirin 81 Mg Tab.chew, 81 MG PO DAILY Prescribed by: INA LEE on 01/07/19 1034 Calcium Carb & Citrate/Vit D3 1 Each Tablet.er, 1 EACH PO DAILY, (Reported) Clopidogrel Bisulfate 75 Mg Tablet, 75 MG PO DAILY, (Reported) Levothyroxine Sodium 50 Mcg Tablet, 50 MCG PO DAILY, (Reported) Meclizine HCl 25 Mg Tablet, 25 MG PO TID PRN for VERTIGO, (Reported) Metoprolol Tartrate 50 Mg Tablet, 25 MG PO BID, (Reported) TAKES 1/2 (50MG) TABLET Simvastatin 40 Mg Tablet, 40 MG PO HS, (Reported) Patient Home Medication List Home Medication List Reviewed: Yes Review of Systems Review of Systems Constitutional: see HPI EENTM: see HPI Respiratory: no symptoms reported Cardiovascular: no symptoms reported Genitourinary: no symptoms reported Musculoskeletal: no symptoms reported Skin: no symptoms reported Psychiatric/Neurological: No Symptoms Reported Hematologic/Lymphatic: No Symptoms Reported Past Bygsplb-Vhvqsh-Trhenz Hx Patient Social History Alcohol Use: Denies Use Smoking Status: Former Smoker Type Used: Cigarettes Former Smoker, Quit: May 28, 1986 Recent Infectious Disease Expo: No Recent Hopitalizations: No Immunizations Up To Date Tetanus Booster (TDap): Unknown PED Vaccines UTD: No Date of Pneumonia Vaccine: Apr 27, 2012 Seasonal Allergies Seasonal Allergies: No Past Medical History Surgeries: Yes (COLON) Abdominal, Bowel Surgery, Cardiac, CABG, Coronary Stent, Hysterectomy, Tonsill ectomy, Vascular Surgery Respiratory: Yes (COPD; 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) Pneumonia, Chronic Bronchitis, COPD Currently Using CPAP: No Currently Using BIPAP: No Cardiac: Yes (STENTS--CARDIAC, CAROTIDS, LEGS) Coronary Artery Disease, Heart Attack, High Cholesterol, Hypertension, Peripheral Vascular Neurological: Yes Headaches /Migraines, TIA Reproductive Disorders: Yes Female Reproductive Disorders: Endometriosis 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 Sexually Transmitted Disease: No HIV/AIDS: No Genitourinary: No Gastrointestinal: Yes Gastroesophageal Reflux, Obstructive Bowel, Diverticulosis, Hiatal Hernia, Gall Bladder Disease Musculoskeletal: Yes (ARTHRITIS) Osteoporosis, Arthritis, Fibromyalgia, Fractures Endocrine: Yes Hypothyroidsim HEENT: Yes Cataract Loss of Vision: Denies Hearing Impairment: Hard of Hearing Cancer: Yes (LUNG CANCER- > 13YRS AGO--S/P CHEMO AND RADIATION ) Lung Psychosocial: No Integumentary: Yes (SHINGLES in past, treated with OTC antifungal ordered by dr Muhammad?) Eczema Blood Disorders: Yes (ANEMIA) Adverse Reaction/Blood Tranf: No Family Medical History Family history: Asthma 19 FATHER, Onset:Unknown Family history: Cardiovascular disease 19 MOTHER, Onset:Unknown No Family History of: Abdominal aortic aneurysm Daggett's disease Alcoholism Aphasia Cancer Cancer of colon Cataract Chest pain Congenital heart disease Congestive heart failure Cystic fibrosis Dementia Dysphagia Family history: Allergy Family history: Alzheimer's disease Family history: Arthritis Family history: Breast disease Family history: Coronary thrombosis Family history: Diabetes mellitus Family history: Gastrointestinal disease Family history: Glaucoma Family history: Hypertension Family history: Osteoporosis Family history: Thyroid disorder Headache Hearing loss Heart disease Hereditary disease History of - anemia History of - disorder History of - respiratory disease History of drug abuse Human immunodeficiency virus (HIV) seropositivity Hypercholesterolemia Infertile Kidney disease Malignant neoplasm of lung Myocardial infarction Parkinson's disease Prostate cancer Psychotic disorder Seizure disorder Stroke Tuberculosis Visual impairment Physical Exam Vital Signs Vital Signs - First Documented 10/31/20 15:21 Temp 37.0 Pulse 98 Resp 18 B/P (MAP) 166/78 (107) Pulse Ox 95 Capillary Refill : Less Than 3 Seconds Height, Weight, BMI Height: 5'0.00" Weight: 112lbs. 0.0oz. [id number]; 18.00 BMI Method:Stated General Appearance: No Apparent Distress, WD/WN, Cachetic, Thin, Other (Alert oriented x3 very pleasant) Eyes: Bilateral Eye Normal Inspection, Bilateral Eye PERRL, Bilateral Eye EOMI Respiratory: No Accessory Muscle Use, No Respiratory Distress Cardiovascular: Regular Rate, Rhythm, Normal Peripheral Pulses Gastrointestinal: Normal Bowel Sounds, Non Tender, Soft Extremity: Normal Capillary Refill, Normal Inspection Neurologic/Psychiatric: Alert, Oriented x3 Skin: Normal Color, Warm/Dry Procedures/Interventions IV : Location: Right Site: Wrist IV Catheter Type: Saline Lock Progress/Results/Core Measures Suspected Sepsis Recent Fever Within 48 Hours: No Infection Criteria Present: None New/Unexplained Altered Menta: No Sepsis Screen: No Definite Risk SIRS Temperature: Pulse: 98 Respiratory Rate: 18 Laboratory Tests 10/31/20 15:47: White Blood Count 8.4 Blood Pressure 166 /78 Mean: 107 Laboratory Tests 10/31/20 15:47: Creatinine 1.02, Platelet Count 497H, Total Bilirubin 0.7 Results/Orders Lab Results Laboratory Tests Test 10/31/20 15:47 10/31/20 16:40 Range/Units White Blood Count 8.4 4.3-11.0 10^3/uL Red Blood Count 4.14 3.80-5.11 10^6/uL Hemoglobin 13.4 11.5-16.0 g/dL Hematocrit 40 35-52 % Mean Corpuscular Volume 97 80-99 fL Mean Corpuscular Hemoglobin 32 25-34 pg Mean Corpuscular Hemoglobin Concent 34 32-36 g/dL Red Cell Distribution Width 15.6 H 10.0-14.5 % Platelet Count 497 H 130-400 10^3/uL Mean Platelet Volume 9.5 9.0-12.2 fL Immature Granulocyte % (Auto) 0 % Neutrophils (%) (Auto) 80 H 42-75 % Lymphocytes (%) (Auto) 10 L 12-44 % Monocytes (%) (Auto) 10 0-12 % Eosinophils (%) (Auto) 0 0-10 % Basophils (%) (Auto) 1 0-10 % Neutrophils # (Auto) 6.6 1.8-7.8 X 10^3 Lymphocytes # (Auto) 0.8 L 1.0-4.0 X 10^3 Monocytes # (Auto) 0.8 0.0-1.0 X 10^3 Eosinophils # (Auto) 0.0 0.0-0.3 10^3/uL Basophils # (Auto) 0.1 0.0-0.1 10^3/uL Immature Granulocyte # (Auto) 0.0 0.0-0.1 10^3/uL Sodium Level 136 135-145 MMOL/L Potassium Level 2.8 L 3.6-5.0 MMOL/L Chloride Level 89 L 98-107 MMOL/L Carbon Dioxide Level 28 21-32 MMOL/L Anion Gap 19 H 5-14 MMOL/L Blood Urea Nitrogen 13 7-18 MG/DL Creatinine 1.02 0.60-1.30 MG/DL Estimat Glomerular Filtration Rate 51 BUN/Creatinine Ratio 13 Glucose Level 106 H 70-105 MG/DL Calcium Level 9.9 8.5-10.1 MG/DL Corrected Calcium 10.0 8.5-10.1 MG/DL Magnesium Level 2.0 1.6-2.4 MG/DL Total Bilirubin 0.7 0.1-1.0 MG/DL Aspartate Amino Transf (AST/SGOT) 17 5-34 U/L Alanine Aminotransferase (ALT/SGPT) 12 0-55 U/L Alkaline Phosphatase 93 40-136 U/L B-Type Natriuretic Peptide 197.7 H <100.0 PG/ML Total Protein 8.2 6.4-8.2 GM/DL Albumin 3.9 3.2-4.5 GM/DL Lipase 16 8-78 U/L Procalcitonin 0.13 H <0.10 NG/ML Urine Color YELLOW Urine Clarity CLEAR Urine pH 7.5 5-9 Urine Specific [place] 1.015 L 1.016-1.022 Urine Protein NEGATIVE NEGATIVE Urine Glucose (UA) NEGATIVE NEGATIVE Urine Ketones NEGATIVE NEGATIVE Urine Nitrite NEGATIVE NEGATIVE Urine Bilirubin NEGATIVE NEGATIVE Urine Urobilinogen 0.2 < = 1.0 MG/DL Urine Leukocyte Esterase 2+ H NEGATIVE Urine RBC (Auto) TRACE-I NEGATIVE Urine RBC 0-2 /HPF Urine WBC 0-2 /HPF Urine Squamous Epithelial Cells 0-2 /HPF Urine Crystals PRESENT H /LPF Urine Calcium Oxalate Crystals FEW H /LPF Urine Bacteria FEW H /HPF Urine Casts NONE /LPF Urine Mucus MODERATE H /LPF Urine Culture Indicated YES My Orders Orders - ALEXANDRA PATEL APRN Cbc With Automated Diff (10/31/20 15:47) Procalcitonin (Pct) (10/31/20 15:47) Comprehensive Metabolic Panel (10/31/20 15:47) Lipase (10/31/20 15:47) Ua Culture If Indicated (10/31/20 15:47) Ed Iv/Invasive Line Start (10/31/20 15:47) BNP (10/31/20 15:47) Magnesium (10/31/20 15:47) Ed Iv/Invasive Line Start (10/31/20 15:47) Chest 1 View, Ap/Pa Only (10/31/20 15:48) Urine Culture (10/31/20 16:40) Ct Chest/Abdomen/Pelvis Wo (10/31/20 17:06) Vital Signs/I&O 10/31/20 15:21 Temp 37.0 Pulse 98 Resp 18 B/P (MAP) 166/78 (107) Pulse Ox 95 Capillary Refill : Less Than 3 Seconds Blood Pressure Mean: 107 Diagnostic Imaging Diagonstic Imaging: Xray Plain Films/CT/US/NM/MRI: chest Comments NAME: JACKSON WESTFALL Mirela MED REC#: [id number] PT STATUS: REG ER : 1930 PHYSICIAN: ALEXANDRA PATEL CASH SHORTAGE INVESTIGATOR ADMIT DATE: 10/31/20/ER Draft Date of Exam:10/31/20 CHEST 1 VIEW, AP/PA ONLY INDICATION: cough. TECHNIQUE: Single view chest, 4:11 p.m. CORRELATION STUDY: 09/24/2016. FINDINGS: Poststernotomy changes. Heart size is within normal limits. There is abnormal density about the bilateral lung apices most pronounced in the paramediastinal region. On the right, generally stable to slightly increased. On the left adversely changed. Dense calcification of the aortic arch. There is presence of endovascular stents over the bilateral lung apices extending into the neck. Surgical clips over bilateral axillary region. IMPRESSION: Rather pronounced asymmetric parenchymal densities in the bilateral lung apices paramediastinal region, left greater than right. 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 May be additional superimposed inflammatory changes. Possibility of mass lesion is not excluded. Continued short-term follow-up imaging and/or a repeat CT imaging of chest would be recommended. Dictated on workstation # [id number] Dict: 10/31/20 1616 Trans: 10/31/20 1713 [facility] [id number] Interpreted by: CHEYANNE WHITEHEAD DO Electronically signed by: Departure Impression Primary Impression: Generalized weakness Disposition: 01 HOME, SELF-CARE Condition: Stable Departure-Patient Inst. Referrals: LORNA WICK MD (PCP/Family) Primary Care Physician ALEXANDRA PATEL APRN Oct 31, 2020 15:50
[2020-10-31 16:01] LABS: BASOPHILS # (AUTO) 0.1 10^3/uL (0.0-0.1); BASOPHILS % (AUTO) 1 % (0-10); EOSINOPHILS % (AUTO) 0 % (0-10); HEMATOCRIT 40 % (35-52); HEMOGLOBIN 13.4 g/dL (11.5-16.0); LYMPHOCYTES # (AUTO) 0.8 X 10^3 (1.0-4.0); LYMPHOCYTES % (AUTO) 10 % (12-44); MEAN CORPUSCULAR HEMOGLOBIN 32 pg (25-34); MEAN CORPUSCULAR HGB CONC 34 g/dL (32-36); MEAN CORPUSCULAR VOLUME 97 fL (80-99); MEAN PLATELET VOLUME 9.5 fL (9.0-12.2); MONOCYTES # (AUTO) 0.8 X 10^3 (0.0-1.0); MONOCYTES % (AUTO) 10 % (0-12); NEUTROPHILS # (AUTO) 6.6 X 10^3 (1.8-7.8); NEUTROPHILS % (AUTO) 80 % (42-75); PLATELET COUNT 497 10^3/uL (130-400); WHITE BLOOD COUNT 8.4 10^3/uL (4.3-11.0)
[2020-10-31 16:25] LABS: ALBUMIN 3.9 GM/DL (3.2-4.5); POTASSIUM 2.8 MMOL/L (3.6-5.0)
[2020-10-31 16:26] LABS: CALCIUM 9.9 MG/DL (8.5-10.1)
[2020-10-31 16:27] LABS: TOTAL PROTEIN 8.2 GM/DL (6.4-8.2)
[2020-10-31 16:29] LABS: BILIRUBIN,TOTAL 0.7 MG/DL (0.1-1.0)
[2020-10-31 16:31] LABS: CREATININE SERUM 1.02 MG/DL (0.60-1.30)
[2020-10-31 16:49] LABS: BILIRUBIN,URINE NEGATIVE (NEGATIVE); CLARITY,URINE CLEAR; COLOR,URINE YELLOW; GLUCOSE, URINE (UA) NEGATIVE (NEGATIVE); KETONES,URINE NEGATIVE (NEGATIVE); LEUKOCYTE ESTERASE ,URINE 2+ (NEGATIVE); NITRITE,URINE NEGATIVE (NEGATIVE); PH,URINE 7.5 (5-9); PROTEIN,URINE NEGATIVE (NEGATIVE)
[2020-10-31 17:00] LABS: RBC,URINE 0-2 /HPF
[2020-10-31 17:01] LABS: BACTERIA,URINE FEW /HPF; CALCIUM OXALATE CRYSTALS,UR FEW /LPF; SQUAMOUS EPITHELIAL CELL,UR 0-2 /HPF; WBC,URINE 0-2 /HPF
--- NOTE | 2020-10-31 17:14 | Diagnostic Imaging Report ---
INDICATION: cough. TECHNIQUE: Single view chest, 4:11 p.m. CORRELATION STUDY: 09/24/2016. FINDINGS: Poststernotomy changes. Heart size is within normal limits. There is abnormal density about the bilateral lung apices most pronounced in the paramediastinal region. On the right, generally stable to slightly increased. On the left adversely changed. Dense calcification of the aortic arch. There is presence of endovascular stents over the bilateral lung apices extending into the neck. Surgical clips over bilateral axillary region. IMPRESSION: Rather pronounced asymmetric parenchymal densities in the bilateral lung apices paramediastinal region, left greater than right. 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 May be additional superimposed inflammatory changes. Possibility of mass lesion is not excluded. Continued short-term follow-up imaging and/or a repeat CT imaging of chest would be recommended. Dictated by: Dictated on workstation # [id number]
--- NOTE | 2020-10-31 17:50 | Diagnostic Imaging Report ---
EXAMINATION: CT chest, abdomen and pelvis without intravenous contrast. TECHNIQUE: Multiple contiguous axial images were obtained through the chest, abdomen and pelvis without intravenous contrast. All CT scans use one or more of the following dose optimizing techniques: automated exposure control, MA and/or KvP adjustment based on patient size and exam type or iterative reconstruction. HISTORY: Intractable vomiting, weight loss, lung cancer. COMPARISON: Chest CT dated 11/23/2016 and abdomen and pelvis CT dated 12/23/2013. FINDINGS: There is bilateral perihilar fibrosis and traction bronchiectasis with architectural distortion consistent with radiation therapy. Lungs are moderately emphysematous. There is an area of consolidation in the right lower lobe. No edema. There is a small left pleural effusion. There is no axillary, supraclavicular lymphadenopathy. No mediastinal lymphadenopathy is seen. The degree of soft tissue associated with the piper appear similar to prior exam but direct comparison is difficult due to absence of intravenous contrast. Heart size appears normal. No pericardial effusion. Coronary arteries are severely calcified. Aorta is heavily calcified. There are vascular stents in the common carotid arteries and left subclavian artery. Liver is normal without focal lesion. Gallbladder is absent. There is no biliary ductal dilation. There is a small hiatal hernia. The pancreas, spleen and adrenal glands are normal. Kidneys are normal without focal lesion or hydronephrosis. Urinary bladder is normal. There is diverticulosis without diverticulitis. There has been a prior right colon resection. No evidence for bowel obstruction or inflammation. The aorta is heavily calcified without aneurysm with a stent in the right external iliac artery. There is no free fluid or air. There is no lymphadenopathy in the abdomen or pelvis. There are no suspicious osseus lesions. There is a moderate mid thoracic compression fracture which is new from 2017 but favored to be chronic given its morphology. There is exaggerated kyphosis in the midthoracic spine. IMPRESSION: 1. Radiation changes in the piper, likely unchanged from prior exam but with difficult comparison due to the absence of intravenous contrast. 2. New area of consolidation in the right lower lobe which may represent pneumonia. Short-term follow-up is recommended to ensure resolution and that this is not metastatic disease. 3. No acute abnormality in the abdomen or pelvis. Dictated by: Dictated on workstation # [id number]
[2020-10-31] MEDS ORDERED: PROMETHAZINE INJ 25 MG/ML (PHENERGAN) AMP IVP ONE (18:15)
[2020-10-31] MEDS ORDERED: SCOPOLAMINE 1.5 MG (TRANSDERM-SCOP) PATCH TD ONE (18:15)
[2020-10-31] MEDS ORDERED: NS IV 500 ML 500 ML IV SCH (18:15)
[2020-10-31] MEDS ORDERED: PROMETHAZINE INJ 25 MG/ML (PHENERGAN) AMP IVP PRN (18:45)
[2020-10-31] MEDS ORDERED: TEMAZEPAM 7.5 MG CAP (RESTORIL) PO PRN (18:45)
[2020-10-31 19:34] VITALS: BP 119/59
[2020-10-31] MEDS ORDERED: NS IV 1000 ML 1,000 ML IV SCH (20:00)
[2020-10-31] MEDS ORDERED: CEFEPIME 1 GM/10 ML (MAXIPIME) VIAL ONE (20:03)
[2020-10-31] MEDS ORDERED: POTASSIUM CL 10MEQ/50ML IVPB 200 ML IV ONE (20:03)
[2020-10-31] MEDS ORDERED: WATER (STERILE) FOR INJECTION 10 ML ONE (20:05)
[2020-10-31] MEDS: POTASSIUM CL 10MEQ/50ML IVPB 50 ML IV SCH ×3 (20:15→22:50)
[2020-10-31] MEDS: CEFEPIME INJECTION 1,000 MG in WATER (STERILE) FOR INJECTION 10 ML IV SCH (20:17)
[2020-10-31 23:57] VITALS: BP 138/71
[2020-11-01] MEDS: POTASSIUM CL 10MEQ/50ML IVPB 50 ML IV SCH (00:13)
[2020-11-01 04:00] VITALS: BP 102/56
[2020-11-01 05:17] LABS: POTASSIUM 3.7 MMOL/L (3.6-5.0)
[2020-11-01 05:19] LABS: CALCIUM 8.5 MG/DL (8.5-10.1)
[2020-11-01 05:23] LABS: CREATININE SERUM 0.97 MG/DL (0.60-1.30)
[2020-11-01 08:00] VITALS: BP 116/54
[2020-11-01] MEDS: CEFEPIME INJECTION 1,000 MG in WATER (STERILE) FOR INJECTION 10 ML IV SCH (08:07)
[2020-11-01] MEDS ORDERED: CEFDINIR 300 MG (OMNICEF) CAP PO NR (10:05)
[2020-11-01] MEDS ORDERED: FURO40TA4 PO (11:34)
[2020-11-01] MEDS ORDERED: RT-ALBUINH INH (11:34)
[2020-11-01] MEDS ORDERED: IPRA3AMP31 IH (11:34)
[2020-11-01] MEDS ORDERED: POLY17PO21 PO (11:34)
[2020-11-01] MEDS ORDERED: SIME125T59 PO (11:34)
[2020-11-01] MEDS ORDERED: SPIR25TA5 PO (11:34)
[2020-11-01] MEDS ORDERED: METO5TAB2 PO (11:34)
[2020-11-01] MEDS ORDERED: CYAN500T8 PO (11:34)
[2020-11-01] MEDS ORDERED: ASPI-999 PO (11:34)
--- NOTE | 2020-11-01 11:53 | Physical Therapy Evaluation ---
PT Evaluation-General Medical Diagnosis Admission Date Oct 31, 2020 at 17:54 Medical Diagnosis: pneumonia/hypokalemia Onset Date: Oct 31, 2020 Therapy Diagnosis Therapy Diagnosis: debility/weakness Height/Weight Height (Feet): 5 Height (Inches): 0.00 Weight (Pounds): 112 Weight (Ounces): 0.0 Precautions Precautions/Isolations: Fall Prevention, Standard Precautions Referral Physician: Sanaz Reason for Referral: Evaluation/Treatment Medical History Pertinent Medical History: CABG, CAD, COPD, HTN, SD Additional Medical History lung cancer Current History ER secondary to vomiting and SOB (recent 2 week stay at [facility] with d ismissal date of 10/16/20) Reviewed History: Yes Social History Home: [facility] Current Living Status: Other Family Prior Prior Level of Function SCALE: Activities may be completed with or without assistive devices. 6-Wrnpdfbrkt-xvjqqau completes the activity by him/herself with no assistance from a helper. 5-Set-up or Clean-up Assistance-helper sets up or cleans up; patient completes activity. [place] assists only prior to or following the activity. 4-Supervision or Touching Assistance-helper provides verbal cues and/or touching/steadying and/or contact guard assistance as patient completes activity. Assistance may be provided throughout the activity or intermittently. 3-Partial/Moderate Assistance-helper does LESS THAN HALF the effort. [place] lifts, holds or supports trunk or limbs, but provides less than half the effort. 2-Substantial/Maximal Assistance-helper does MORE THAN HALF the effort. [place] lifts or holds trunk or limbs and provides more than half the effort. 3-Ztvhbgjzu-zjwyxs does ALL the effort. Patient does none of the effort to complete the activity. Or, the assistance of 2 or more helpers is required for the patient to complete the activity. If activity was not attempted, code reason: 7-Patient Refused. 9-Not Applicable-not attempted and the patient did not perform the activity before the current illness, exacerbation or injury. 10-Not Attempted due to Environmental Limitations-(lack of equipment, weather restraints, etc.). 88-Not Attempted due to Medical Conditions or Safety Concerns. Bed Mobility: 4 Transfers (B,C,W/C): 4 Gait: 4 Indoor Mobility (Ambulation): Needed Some Help Prior Devices Use: Walker PT Evaluation-Current Subjective Patient agrees to PT. Objective Patient Orientation: Person, Time, Situation Attachments: Oxygen ROM/Strength ROM Lower Extremities bilateral LE WFL Strength Lower Extremities 3/5 grossly bilateral LE all planes Integumentary/Posture Integumentary refer to nursing notes Bowel Incontinence: No Bladder Incontinence: No Posture severe kyphosis Neuromuscular (Tone, Coordination, Reflexes) grossly intact Sensory Vision: Functional Hearing: Impaired Transfers Roll Left to Right (QC): 4 Sit to Lying (QC): 4 Lying to Sitting/Side of Bed(Q: 4 Sit to Stand (QC): 4 Chair/Lzs-sq-Amlif Xfer(QC): 4 CGA for safety Gait Does the Patient Walk?: Yes Mode of Locomotion: Both Anticipated Mode of Locomotion: Both Walk 10 feet (QC): 4 Walk 50 ft with 2 Turns(QC): 4 Walk 150 ft (QC): 4 Distance: 150' Gait Assistive Device: FWW Comments/Gait Description CGA for safety (steady, functional gait sequence) Balance Sitting Static: Normal Sitting Dynamic: Normal Standing Static: Fair Standing Dynamic: Fair Assessment/Needs 89 y.o. female, will be seen short term by skilled PT to address functional strength and mobility to improve current LOF. Per report, patient may dismiss to home with family on hospice. Rehab Potential: Guarded PT Residential Goals Residential Goals PT Residential Goals Time Frame: Nov 13, 2020 Roll Left & Right (QC): 4 (SBA) Sit to Lying (QC): 4 (SBA) Lying-Sitting on Side/Bed(QC): 4 (SBA) Sit to Stand (QC): 4 (SBA) Chair/Xdt-kb-Szdmw Xfer(QC): 4 (SBA) Toilet Transfer (QC): 4 (SBA) Walk 10 feet (QC): 4 (SBA) Walk 50ft with 2 Turns (QC): 4 (SBA) Walk 150 ft (QC): 4 (SBA) PT Plan Problem List Problem List: Activity Tolerance, Functional Strength, Balance, Gait, Transfer Treatment/Plan Treatment Plan: Continue Plan of Care Treatment Plan: Bed Mobility, Education, Functional Activity Carlee, Functional Strength, Gait, Safety, Therapeutic Exercise, Transfers Treatment Duration: Nov 13, 2020 Frequency: 6 times per week Estimated Hrs Per Day: .25 hour per day Patient and/or Family Agrees t: Yes Time/GCodes Time In: 1115 Time Out: 1125 Total Billed Treatment Time: 10 Total Billed Treatment 1 visit EVModC 10 min PENNY FREEMAN PT Nov 01, 2020 11:53
[2020-11-01] MEDS ORDERED: PROM25TA14 PO (15:13)
[2020-11-01] MEDS ORDERED: CEFD300C3 PO (15:13)
--- NOTE | 2020-11-01 15:39 | Occ Therapy Progress Note ---
Therapy Progress Note Attempted x2 to see pt. Pt. had other clinical staff in room working with pt. and family each time. Will attempt back in morning. 0 1,1, visit ANTHONY TORRES OT Nov 01, 2020 15:39
[2020-11-01 17:15] VITALS: BP 116/54
[2020-11-01] MEDS ORDERED: CEFDINIR 300 MG (OMNICEF) CAP PO SCH (21:00)
== END 2020-11-01 17:15 | disposition hospice, home (50) ==
LOC: EDUNIT# 14:51 → ER 14:54 → 4TH 17:54
PROVIDERS: ADMIT Family Medicine; ATTEND Internal Medicine
DX: R53.1 Weakness (principal); E87.6 Hypokalemia; J44.9 Chronic obstructive pulmonary disease, unspecified; I25.10 Atherosclerotic heart disease of native coronary artery without angina pectoris; I25.2 Old myocardial infarction; E78.00 Pure hypercholesterolemia, unspecified; I10 Essential (primary) hypertension; G43.909 Migraine, unspecified, not intractable, without status migrainosus; G45.9 Transient cerebral ischemic attack, unspecified; K21.9 Gastro-esophageal reflux disease without esophagitis; E03.9 Hypothyroidism, unspecified; M19.90 Unspecified osteoarthritis, unspecified site; M81.0 Age-related osteoporosis without current pathological fracture; M79.7 Fibromyalgia; Z85.118 Personal history of other malignant neoplasm of bronchus and lung; Z79.899 Other long term (current) drug therapy; Z79.02 Long term (current) use of antithrombotics/antiplatelets; Z87.891 Personal history of nicotine dependence; Z90.710 Acquired absence of both cervix and uterus; Z90.89 Acquired absence of other organs
CPT/HCPCS: 36415; 71045; 71250; 74176; 80048; 80053; 81000; 83690; 83735; 83880; 84145; 85025; 87077; 87088; 87186; 94761; G0378